=== PATIENT | male | born 1950 | race Caucasian/White ===

== ENCOUNTER 2017-12-20 22:32 | Inpatient (IN) | payer MEDICARE ==
[2017-12-21] MEDS ORDERED: NS 0.9% 1000 ML* 1,000 ML IV ONE (01:27)
[2017-12-21] MEDS ORDERED: HYDROmorphone INJ* 2 MG/ML CARPUJECT SYRINGE IV SLOW PU ONE (01:57)
--- NOTE | 2017-12-21 01:57 | ED ---
GI/ HPI - HPI Summary HPI Summary: This patient is a 67 year old M presenting to [facility] accompanied by with a chief complaint of constipation that began at approximately 1600. The patient rates the pain 8/10 in severity. Symptoms aggravated by nothing. Symptoms alleviated by nothing. Patient reports right leg weakness (since knee replacement), numbness in right foot (since knee replacement), feeling like something is coming out of the anus, and RLQ abd pain. - History of Current Complaint Chief Complaint: EDRectalPain Time Seen by Provider: 12/21/17 01:26 Stated Complaint: PAIN DIGESTIVE TRACT Hx Obtained From: Patient, Family/Junior Mechanical Engineer Onset/Duration: Started Hours Ago, Still Present Timing: Constant Severity: Severe Current Severity: Severe Pain Intensity: 9 Location of Pain: Rectal Associated Signs and Symptoms: Positive: Other: - Positive right leg weakness ( since knee replacement), numbness in right foot (since knee replacement), feeling like something is coming out of the anus, and RLQ abd pain Aggravating Factor(s): Nothing Alleviating Factor(s): Nothing - Allergy/Home Medications Allergies/Adverse Reactions: Allergies Allergy/AdvReac Type Severity Reaction Status Date / Time erythromycin base AdvReac Stomach Verified 12/21/17 04:22 Cramps PMH/Surg Hx/FS Hx/Imm Hx Previously Healthy: No Endocrine/Hematology History: Reports: Hx Anemia - pale Denies: Hx Diabetes Cardiovascular History: Denies: Hx Hypertension, Hx Pacemaker/ICD GI History: Denies: Hx Jaundice History: Denies: Hx Renal Disease Sensory History: Denies: Hx Hearing Aid Psychiatric History: Denies: Hx Panic Disorder - Surgical History Surgery Procedure, Year, and Place: tr[place], right thumb,sinus,right knee, tonsilectomy. RIGHT KNEE REPLACEMENT 06/2017 Infectious Disease History: No Infectious Disease History: Denies: Traveled Outside the [place] in Last 30 Days - Family History Known Family History: Positive: Diabetes - Social History Occupation: Retired Lives: With Family Alcohol Use: None Hx Substance Use: No Substance Use Type: Reports: None Hx Tobacco Use: No Smoking Status (MU): Never Smoked Tobacco Review of Systems Positive: Abdominal Pain, Other - Positive constipation and feeling like "something is coming out of the anus" Neurological: Other - Positive weakness in right leg and numbness in right foot All Other Systems Reviewed And Are Negative: No Physical Exam - Summary Physical Exam Summary: Appearance: Alert, conversive, nontoxic appearing Skin: Warm, dry, no mottling, no rashes, no contusions HEENT: EOMI, PERRL, moist mucous membranes Neck: No masses on the neck, supple Respiratory: Clear to auscultation, breath sounds present, no rales, no rhonchi , no wheezes Cardiovascular: RRR, pulses are symmetrical in both lower and upper extremities Abdomen: Soft, non-tender Bowel Sounds: Present External Rectal Exam: Prolapsed rectum. Partial prolapsed rectum. A portion of the bowel is sander. Musculoskeletal: No CVA tenderness, no obvious deformity, moving all extremities in a grossly normal manner. Good pulse on right inguinal. Bounding pulses in left inguinal. Neurological: A&Ox3, CN II-XII Intact, moving all extremities symmetrically Psychiatric: Normal affect and mood Triage Information Reviewed: Yes Vital Signs On Initial Exam: Initial Vitals Temp Pulse Resp BP Pulse Ox 97.6 F 112 16 116/80 97 12/20/17 22:35 12/20/17 22:35 12/20/17 22:35 12/20/17 22:35 12/20/17 22:35 Vital Signs Reviewed: Yes Diagnostics - Vital Signs Vital Signs Temp Pulse Resp BP Pulse Ox 12/21/17 01:33 67 18 111/70 93 12/21/17 01:24 71 18 96 12/21/17 01:18 71 18 104/69 93 12/21/17 01:15 93 16 89/59 100 12/21/17 00:40 97.0 F 106 20 98/75 99 12/20/17 22:35 97.6 F 112 16 116/80 97 - Laboratory Result Diagrams: 12/21/17 02:09 12/21/17 02:09 Lab Statement: Any lab studies that have been ordered have been reviewed, and results considered in the medical decision making process. - CT CT Abdomen and Pelvis CT Interpretation Completed By: Radiologist - CT abdomen and pelvis reveals, per radiologist, no acute findings. ED physician has reviewed this radiology report. - EKG 0118 Cardiac Rate: NL EKG Rhythm: Sinus Rhythm - [address] Segment: Normal Ectopy: None Re-Evaluation - Re-Evaluation First Eval Re-Evaluation Time: 05:12 Change: Unchanged Comment: Discussed results and plan of care with pt GIGU Course/Dx - Course Course Of Treatment: This patient is a 67 year old M presenting [place] [facility] accompanied by with a chief complaint of constipation that began at approximately 1600. Symptoms aggravated by nothing. Symptoms alleviated by nothing. Patient reports feeling like something is coming out of the anus. Physical Exam Findings: Good pulse on right inguinal. Bounding pulses in left inguinal. Prolapsed rectum. Partial prolapsed rectum. A portion of the bowel is sander. An EKG reveals nml sinus rhythm at [address] abdomen and pelvis reveals , per radiologist, no acute findings. Bloodwork obtained. In the ED course the patient was given hydromorphone, contrast, and fluids. Consult with Dr. Urbano ( hospitalist) at 0637. She agrees to admit pt for further evaluation. The patient is agreeable with this plan. - Diagnoses Differential Diagnoses - Male: Other - ischemic bowel, obstruction, colitis, internal hemorrhoid, external hemorroid, uti Provider Diagnoses: Abdominal pain, Incomplete rectal prolapse Discharge - Sign-Out/Discharge Documenting (check all that apply): Patient Departure - [place] [facility] [place] Condition: Stable Disposition: ADMITTED TO [facility] Referrals: Alexandra Verma MD [Primary Care Provider] - Attestations Scribe Attestation: This is ramakrishna Barrett documenting for attending Shruthi Martinez MD. User Type: Provider with Scribe Provider Attestation: The documentation recorded by the scribe accurately reflects the service I personally performed and the decisions made by me.
[2017-12-21 02:23] LABS: ABS Basophils 0.1 10^3/ul (0-0.2); ABS Eosinophils 0 10^3/ul (0-0.6); ABS Lymphocytes 3.1 10^3/ul (1.0-4.8); ABS Monocytes 0.6 10^3/ul (0-0.8); ABS Neutrophils 5.8 10^3/ul (1.5-7.7); ABS Nucleated RBC 0 10^3/ul; Eosinophil % 0.4 % (0-6); Hematocrit 45 % (42-52); Lymphocyte % 32.2 % (25-47); Mean Corpuscular HGB Conc 34 g/dl (31-36); Mean Corpuscular Hemoglobin 30 pg (27-31); Mean Corpuscular Volume 88 fL (80-94); Mean Platelet Volume 9.7 um3 (7.4-10.4); Nucleated Red Blood Cells % 0.2; Platelet Count 177 10^3/ul (150-450); Red Blood Count 5.07 10^6/ul (4.00-5.40); Red Cell Distribution Width 16 % (10.5-15); White Blood Count 9.7 10^3/ul (3.5-10.8)
[2017-12-21 02:30] LABS: INR 0.98 (0.77-1.02)
[2017-12-21 02:39] LABS: EGFR Non-African American 75.6 (>60)
[2017-12-21] MEDS ORDERED: Iohexol 300* (CONTRAST) 10 ML SDV IV ONE ×2 (04:54→17:02)
--- NOTE | 2017-12-21 06:25 | RAD ---
EXAM: CT Abdomen and Pelvis With Intravenous Contrast CLINICAL HISTORY: 67 years old, male; Pain; Abdominal pain; Generalized; Additional info: Abd pain TECHNIQUE: Axial computed tomography images of the abdomen and pelvis with intravenous contrast. Coronal and sagittal reformatted images were created and reviewed. COMPARISON: A/P WO CT ABD/PEL W/O 2016-02-08 11:09 FINDINGS: Lung bases: Linear opacities within the lung bases which may represent areas of subsegmental atelectasis. Focal hypodensity located in the dome of the right lobe liver. It has a mildly lobulated margin. It measures 2.4 cm in AP length and 1.7 cm in width. It has a central density of approximately 15 Hounsfield units and may represent a cyst. There is another smaller focal hypodensity in the anterior aspect of the medial right lobe liver. This is too small to further characterize. These lesions were noted on the prior CT study of 02/08/2016 and are unchanged. ABDOMEN: Liver: Unremarkable. No mass. Gallbladder and bile ducts: Cholecystectomy. No ductal dilatation. Pancreas: Fatty infiltration of the pancreas. No dilatation of the pancreatic duct. No pancreatic mass. Spleen: The spleen is of normal size and appearance. Adrenals: The adrenal glands are normal. Kidneys and ureters: The right and left kidneys are of normal size and appearance. No hydronephrosis or nephrolithiasis. No hydroureter. Stomach and bowel: No bowel obstruction. No mucosal thickening. Occasional colonic diverticula without evidence of acute diverticulitis. PELVIS: Appendix: The appendix is not visualized. No evidence of acute appendicitis. Bladder: The bladder is filled with urine. No bladder wall thickening. No calcified stone. Reproductive: Unremarkable as visualized. ABDOMEN and PELVIS: Intraperitoneal space: Unremarkable. No free air. No significant fluid collection. Bones/joints: No acute fracture. No dislocation. Soft tissues: Unremarkable. Vasculature: Atheromatous changes involving the abdominal aorta. No aneurysmal dilatation. Lymph nodes: Unremarkable. No enlarged lymph nodes. IMPRESSION: 1. No acute findings. Final read addendum: There is a hepatic cyst of the dome of the liver with a smaller cyst of segment IVb. These can be identified on 2016 examination and are stable. R2
[2017-12-21] MEDS ORDERED: Albuterol HFA INHALER* 8 gm MDI INH PRN (07:40)
[2017-12-21] MEDS ORDERED: Acetaminophen TAB* 325 MG PO PRN (08:05)
[2017-12-21] MEDS: Cyanocobalamin TAB* 500 MCG PO SCH (09:22)
[2017-12-21] MEDS: NS 0.9% 1000 ML* 1,000 ML IV SCH ×2 (09:24→17:03)
[2017-12-21] MEDS: KCL 10 MEQ/50 ML IVPREMIX* 10 MEQ/50 ML BAG IV SCH ×4 (09:24→12:54)
--- NOTE | 2017-12-21 10:10 | CONSULT ---
Consult Consult: Surgery Consult Asked by Dr. Higginbotham to evaluate a pt. with possible rectal prolapse. Mr. Aguilar is a 67 y.o. male admitted with a neurologic issue who was reported to have pushed something out in an attempt to pass a hard stool yesterday afternoon. He says he has not moved his bowels in 2 weeks and that this degree of constipation is new since September. The change in bowel habits has been accompanied by other changes according to his who says his weight is down from 260 to 190 in that time. Mr. Aguilar says when he tried to push the hard stool out he felt the "skin come out" and then he tried to push that in, and may have hurt himself in the process. He says he still hasn't passed the stool. PMHx: denies Meds: albuterol, VitB12 ALL: erythromycin base SH: denies tob.or IVDA PE: general: WDWN male in NAD lying on side in bed Vital Signs - 12 hr Temp Pulse Resp BP Pulse Ox 12/21/17 09:09 98.2 F 72 24 137/71 100 12/21/17 08:46 97.9 F 61 18 120/69 98 12/21/17 08:03 21 136/78 12/21/17 08:00 19 12/21/17 07:33 25 141/76 12/21/17 07:03 14 112/65 12/21/17 07:00 15 12/21/17 06:33 7 120/73 12/21/17 06:03 7 117/70 12/21/17 06:00 10 12/21/17 05:33 14 119/71 12/21/17 05:03 12 116/66 12/21/17 05:00 10 12/21/17 04:54 19 126/70 12/21/17 04:03 19 122/74 12/21/17 04:00 65 15 97 12/21/17 03:33 75 18 143/83 99 12/21/17 03:29 20 12/21/17 03:03 19 121/70 12/21/17 03:00 59 17 99 12/21/17 02:33 76 19 124/73 95 12/21/17 02:03 70 18 126/71 100 12/21/17 02:00 73 23 99 12/21/17 01:51 88 25 136/98 97 12/21/17 01:33 67 18 111/70 93 12/21/17 01:24 71 18 96 12/21/17 01:18 71 18 104/69 93 12/21/17 01:15 93 16 89/59 100 12/21/17 00:40 97.0 F 106 20 98/75 99 12/20/17 22:35 97.6 F 112 16 116/80 97 anal area shows an edematous external hemorrhoid at the posterior aspect and a large thrombosed hemorrhoid at the anterior aspect. Laboratory Results - last 24 hr 12/21/17 12/21/17 12/21/17 02:09 02:09 02:09 WBC 9.7 RBC 5.07 Hgb 15.0 Hct 45 MCV 88 MCH 30 MCHC 34 RDW 16 H Plt Count 177 MPV 9.7 Neut % (Auto) 60.1 Lymph % (Auto) 32.2 Kent % (Auto) 6.6 Eos % (Auto) 0.4 Baso % (Auto) 0.7 Absolute Neuts (auto) 5.8 Absolute Lymphs (auto) 3.1 Absolute Monos (auto) 0.6 Absolute Eos (auto) 0 Absolute Basos (auto) 0.1 Absolute Nucleated RBC 0 Nucleated RBC % 0.2 ESR INR (Anticoag Therapy) 0.98 APTT 27.7 Sodium 145 Potassium 2.9 L Chloride 108 Carbon Dioxide 20 L Anion Gap 17 H BUN 15 Creatinine 0.99 Est GFR ( Amer) 91.5 Est GFR (Non-Af Amer) 75.6 BUN/Creatinine Ratio 15.2 Glucose 110 H Lactic Acid Calcium 9.5 Total Bilirubin 0.80 AST 14 ALT 6 L Alkaline Phosphatase 71 Total Creatine Kinase 33 C-Reactive Protein 6.39 Total Protein 6.6 Albumin 4.0 Globulin 2.6 Albumin/Globulin Ratio 1.5 Lipase 28 Vitamin B12 TSH 12/21/17 12/21/17 12/21/17 02:09 02:09 02:10 WBC RBC Hgb Hct MCV MCH MCHC RDW Plt Count MPV Neut % (Auto) Lymph % (Auto) Kent % (Auto) Eos % (Auto) Baso % (Auto) Absolute Neuts (auto) Absolute Lymphs (auto) Absolute Monos (auto) Absolute Eos (auto) Absolute Basos (auto) Absolute Nucleated RBC Nucleated RBC % ESR 17 INR (Anticoag Therapy) APTT Sodium Potassium Chloride Carbon Dioxide Anion Gap BUN Creatinine Est GFR ( Amer) Est GFR (Non-Af Amer) BUN/Creatinine Ratio Glucose Lactic Acid 1.6 Calcium Total Bilirubin AST ALT Alkaline Phosphatase Total Creatine Kinase C-Reactive Protein Total Protein Albumin Globulin Albumin/Globulin Ratio Lipase Vitamin B12 284 TSH 9.08 H A/P: Thrombosed hemorrohoid associated with recent constipation. Sitz baths and bowel regimen to manage this.
[2017-12-21] MEDS: Morphine VIAL* 4 MG/ML VIAL (1 ml vial) IV PRN ×2 (10:32→21:26)
[2017-12-21] MEDS: Polyethylene Glycol 3350* 17 GM PACKET PO SCH ×2 (10:33→21:34)
--- NOTE | 2017-12-21 11:25 | HP ---
CC: Dr. Alexandra Calix HISTORY AND PHYSICAL: DATE OF ADMISSION: 12/21/17 TIME OF EVALUATION: 07:34 a.m. PRIMARY CARE PROVIDER: Dr. Alexandra Calix. CONSULTING NEUROLOGIST: Dr. Chris. CONSULTING GENERAL SURGEON: Dr. Erika Alejandra. CHIEF COMPLAINT: "I thought I was going to pass out." HISTORY OF PRESENT ILLNESS: Mr. Aguilar is a 67-year-old male with a past medical history of asthma, thyroid nodule that presented to the emergency room with complaints of rectal pain. While in triage , the patient was asking if "I was getting darker here" and he appeared to be getting "white in color ." The patient was documented as being pale, able to answer questions, but slow to respond. He was put in Trendelenburg and vital signs at that time showed heart rate of 93 with a blood pressure of 89 /59. He was transported to the emergency room, room 14, placed in Trendelenburg position in the [facility] and his blood pressure improved to 104/62 and the patient became more awake. He had initially presented to the emergency room with complaints of constipation. He explains that ar ound 4 p.m. yesterday, he went to the bathroom to have a bowel movement and he felt there was a "flap of skin" blocking the way. He was straining to have a bowel movement and he digitally tried to mitch ve this flap of skin and was unable to. He developed local pain and overnight as the patient persist ed, he decided to come to the emergency room for further evaluation. Emergency room provider vlada l exam revealed a prolapsed rectum. Of note is the fact the patient has had multiple symptoms that started since he had a knee replacemen t in June 2017. He states that since that time, he was feeling weaker, developed pain allover an d initially, he felt that this was associated with the surgery, but as time went by, the symptoms did not resolve, they actually kept getting worse. He developed dysphagia and was seen by his primary c are provider, who detected a thyroid nodule. He was referred to Dr. Max and evaluated in November. He w as found to have a 1.7 cm low suspicion nodule of the left lower thyroid and FNA was benign thyroid n odule, colloid hyperplastic type. Dr. Max noted that this was a benign thyroid nodule and he recommen ded to follow up in 2 years, but he thought the patient's dysphagia was not associated with this thyr oid nodule. He was concerned that the patient could have multisystem atrophy "pseudobulbar palsy" ac counting for the swallowing difficulty as he noted the patient to have bradykinesia, flat effect, but no tremor. He contacted the primary care provider and recommended taking this into consideration if GI evaluation was negative. The patient's states that he had an upper endoscopy done at [place] that was negative and his [facility] care provider did refer him to Neurology, but he is scheduled to be seen in March. In the meantime, the patient's condition continues to decline. She states that he has lost 73 pounds since June and his p.o. intake has been minimal. He states that he has difficulty swallowing an d even if he eats just a small amount, he feels like he ate a lot, so he does not want to eat anymore . She states that he basically now eats just hotdogs and crackers. His weakness in the beginning appeared to be more proximal. He had difficult to getting up from a ch air and he will need to hold onto the chair arms to be able to stand up and he also could not keep hi s arms lifted to the point that now he has to take breaks to be able to shave, but the weakness has b ecome more generalized at this point. PAST MEDICAL HISTORY: 1. Asthma. 2. Thyroid nodule. PAST SURGICAL HISTORY: 1. Status post knee arthroscopies and a right total knee replacement in June 2017. 2. Status post cholecystectomy. MEDICATION LIST: 1. Albuterol HFA 1 puff inhaled q.4 hours p.r.n. shortness of breath. 2. Cyanocobalamin 1000 mcg p.o. daily. ALLERGIES: With ERYTHROMYCIN, the patient has stomach cramps. FAMILY HISTORY: Many siblings had hypothyroidism. Father, type 2 diabetes. No other reported autoi mmune disease. Grandfather and uncle had stomach cancer. SOCIAL HISTORY: No history of alcohol, tobacco, or drug use. He is a retired office electrician and surrog ate decision maker is his , Ariana Aguilar, phone number is [phone]. REVIEW OF SYSTEMS: A 14-point review of systems was performed and all the pertinent negative and pos itive findings are in the HPI. PHYSICAL EXAMINATION GENERAL: The patient is an elderly male that appears older than stated age, lying in the ED stretche r, in no acute distress. VITAL SIGNS: Temperature 97.0, heart rate is 67, respiratory rate is 19, oxygen saturation is 97% on room air, blood pressure is 141/76. HEENT: Pupils are equal. Moist mucous membranes. CHEST: Breath sounds present bilaterally with no added sounds. CVS: Normal S1, S2. Regular rate and rhythm. ABDOMEN: Soft, nontender, nondistended. Bowel sounds present. EXTREMITIES: No edema. There is well-healed surgical scar to his right knee. NEURO: He is alert, awake, and oriented x3. Affect is very flat. He is able to follow commands, bu t has significant proximal weakness. He can lift both arms, but shows signs of fatigue in less than 5 seconds and the arms drop to the bed. He has intrinsic muscle atrophy in his hands. He can lift h is left lower extremity against gravity, but not against resistance and the right lower extremity brody es great effort to lift against gravity, but he can barely hold it. DIAGNOSTIC STUDIES/LAB DATA: The patient had a CBC that showed WBC of 9.7, hemoglobin of 15, hemato crit of 45, platelets of 177 with 60% neutrophils. INR is 0.98, APTT is 27. Chemistry showed sodium of 145, potassium 2.9, chloride of 108, bicarb of 20, anion gap of 17, BUN of 16, creatinine of 0.99 , glucose of 110, calcium of 9.5, lactic acid of 1.6. LFTs are normal except for an ALT of 6. CT of the abdomen and pelvis showed no acute findings. EKG done on 12/21/17 at 01:18 a.m. showed sin us rhythm at 70 beats per minute with no ST-T changes. There is no prior EKG to compare. The patient had an MRI of the brain done on 12/04/17 and it was unremarkable. MRI of the brain with and without contrast with no abnormal enhancement. ASSESSMENT AND PLAN: Mr. Aguilar is a 67-year-old male with a past medical history of asthma, thyroi d nodule that presented to the emergency room with complaints of rectal pain and likely was near sync opal due to vasovagal episode. His major issue is a 6-month history of progressive weakness, dysphag ia, and significant weight loss. 1. Rectal prolapse. I believe this is secondary to the patient's constipation with straining and manipulation. A consult ation with General Surgery was requested. 2. Near syncope/vasovagal. The patient has had very poor oral intake. He appears to be dehydrated and I believe his rectal prol apse, pain, and dehydration likely caused the vasovagal episode. He will be admitted to telemetry floor. He is going to receive IV hydration. We are going to reple te electrolytes and I will check an echocardiogram. 3. Progressive weakness/dysphagia. The patient's presentation is very concerning with this progressive weakness, muscle atrophy, dysphag ia, and significant weight loss. With his intrinsic muscle atrophy, I am concerned he may have ALS. On his examination in November, Dr. Max was concerned with multisystem atrophy. I did not see any fasciculations on my physical examination. Other possibility would be polymyositis, but it usually does not cause dysphagia and the weakness is mostly proximal. I am going to check ROJELIO, ANCA, vitamin B12 level, CPK, CRP, sed rate, TSH, and Neurology consultation was requested with Dr. Chris. He is going to have a swallow evaluation. I am going to check a chest x-ray to look for any masses t hat would suggest a paraneoplastic syndrome. 4. Anion gap metabolic acidosis. Suspect the patient likely has starvation ketosis, he is going to receive IV hydration. We are going to start him on the clear liquid diet and monitor. 5. DVT prophylaxis: The patient has a score of 2 on the DVT Prophylaxis Risk Assessment Guide and h e will be started on subcutaneous heparin. 6. Code status is full. TIME SPENT: Approximately 60 minutes were spent with the patient, interview, medical records re view, physical examination to complete this admission, more than half of this time was spent face-to- face with the patient and coordination of care. [id number]/[facility] #: [id number]
[2017-12-21] MEDS: Heparin VIAL(*) 5000 UNITS/ML VIAL (FIVE THOUSAND) SUBCUT SCH ×2 (14:21→21:29)
[2017-12-21] MEDS: Pantoprazole IV* 40 MG IV SCH (16:10)
--- NOTE | 2017-12-21 18:18 | RAD ---
HISTORY: Weight loss, r/o tumor COMPARISONS: None TECHNIQUE: Multiple contiguous axial CT scans of the chest were obtained with intravenous contrast. Coronal and sagittal multiplanar reformations are also submitted for review. FINDINGS: NECK AND THYROID: The lower neck and thyroid are unremarkable. CHEST WALL: There is no lower cervical, axillary, or supraclavicular lymphadenopathy by size criteria. HEART AND PERICARDIUM: The heart is unremarkable. AORTA AND PULMONARY VASCULATURE: The aorta and pulmonary vasculature are normal. MEDIASTINUM: There is no mediastinal lymphadenopathy by size criteria. JODI: There is no hilar lymphadenopathy by size criteria. AIRWAY AND ESOPHAGUS: The airway is unremarkable, without endobronchial filling defect. The esophagus is grossly normal. LUNG PARENCHYMA: There is hyperinflation. There is a 0.4 centimeter nodule within the right middle lobe on axial image 37. PLEURA: No pleural abnormalities are noted. UPPER ABDOMEN: Hepatic cysts are noted. BONES AND SOFT TISSUES: Degenerative changes are noted of the spine. OTHER: None. IMPRESSION: 1. 0.4 CM NODULE OF THE RIGHT MIDDLE LOBE THE RECOMMENDATIONS FOR FOLLOWUP AND MANAGEMENT OF AN INCIDENTALLY DETECTED PULMONARY NODULE LESS THAN 6 MM IN SIZE, IN A PATIENT WITHOUT A HISTORY OF MALIGNANCY, INCLUDE NO FOLLOWUP FOR A LOW-RISK PATIENT OR OPTIONAL FOLLOWUP CT IN 12 MONTHS FOR A HIGH RISK PATIENT. 2. OTHERWISE UNREMARKABLE CT OF THE CHEST. NOTES: SIZE = AVERAGE LENGTH AND WIDTH; HIGH RISK IS DEFINED A HISTORY OF SMOKING OR OTHER KNOW RISK FACTORS FOR LUNG CANCER; LOW RISK IS DEFINED MINIMAL OR ABSENT HISTORY OF SMOKING OR OTHER KNOWN RISK FACTORS. Amol H, MOON Mac, HUGO Damon, et al (2017) "Guidelines for Management of Incidental Pulmonary Nodules Detected on CT Images: From the Fleischner Society 2017." Radiology; 284(1): 228-243. doi:10.1148/radiol.[id number] 1.
--- NOTE | 2017-12-21 20:08 | CONS ---
CONSULTATION REPORT: DATE OF CONSULT: 12/21/17 PATIENT OF: Dr. Higginbotham, Dr. Calix, Dr. Max. HISTORY OF PRESENT ILLNESS: This is a 67-year-old right-handed man, whose history dates back to June, when he had knee surgery and he notes that roughly at that point he began developing weakness that has been slowly progressive involving both arms and legs and it has clearly been worse since September , but seems like it is getting persistently worse. It is more proximally with shoulders being the worse, but also worse in the leg. He has had some difficulty swallowing. This has been going on since perhaps September and he feels like the swallowing has led to significant weight loss. He has become more nasal and he feels like some of the weakness may be fatigable. He has had no double vision. No incoordination. He is little bit unsteady in his gait. He has some mild neck pain, but no significant headache. No nausea or vomiting. He has had constipation and this has been a problem. He has had 1 near syncopal episode. In the emergency room today, when he came because of rectal pain, he had a near syncopal episode with blood pressure going down to 89/59 and him feeling like he was going to pass out. As part of his workup for dysphagia, a thyroid nodule was found and he was referred to Dr. Max and this was felt to be a benign thyroid nodule, colloid, hyperplastic type. He has had an upper endoscopy at [place], which is negative. PAST MEDICAL HISTORY: Significant for his asthma and thyroid nodule. PAST SURGICAL HISTORY: He is status post knee arthroscopies and a right total knee replacement, June 2017; status post cholecystectomy. MEDICATIONS: He is on albuterol 1 puff q.4 hours p.r.n., cyanocobalamin 1000 mcg p.o. daily. ALLERGIES: He is allergic to ERYTHROMYCIN with stomach cramps. FAMILY HISTORY: There is no family history for neurological disease, no progressive weakness in anyone in the family. There are many siblings with hypothyroidism. There is no known autoimmune disease. A grandfather and uncle had stomach cancer. SOCIAL HISTORY: He does not smoke, drink, or use drugs. He is a retired fitness coordinator. REVIEW OF SYSTEMS: Negative in all 14 spheres other than in the HPI. He has had no muscle twitches and no tremor. PHYSICAL EXAM: Temperature 97.7, pulse 57, respirations 18, blood pressure 118/ 62. He is alert and oriented with normal word finding. There is no slurring with speech, but his speech is sounding nasal. He had full extraocular movements without double vision. There was no ptosis on prolonged upper gaze. Fundi were benign. There was no clear tongue atrophy or fasciculations. I noted no fasciculations in his extremities. Reflexes were trace to 1. Strength was 5-/5 distally with 4+/5 proximally with repetitive shoulder shrugs , he seemed to fatigue, but not in a pronounced way. Sensation intact to light touch. Reflexes as mentioned trace to 1. I stood him up, he did not get lightheaded and he did not fall with Romberg, but he had a wide-based stance with that to help protect him. He was able to take a few steps, but he seemed unsteady. Chest: Clear. Cardiovascular: Regular rate and rhythm. Abdomen: Soft with positive bowel sounds. DIAGNOSTIC STUDIES/LAB DATA: I reviewed his MRI scan from 12/04/17, which was read as normal except his both temporal lobes may have had atrophy. He had a scan in 2009, and it was done for a headache, that was read as normal, but I was not able to compare the films to see if there was an interval change. Labs include normal sed rate, CBC, normal INR and PTT. He had normal CMP other than potassium of 2.2, bicarb was 20, lactic acid of 1.6. Normal liver function test. CPK was 33. C-reactive protein was 6.39. Lipase is 28. Vitamin B12 was 284, TSH was 908. ASSESSMENT AND PLAN: He is getting a vasculitis workup. He is getting an MRI scan of his cervical spine. Dr. Higginbotham is getting a CT chest, abdomen and pelvis. One possibility is he could have an underlying malignancy explaining the weight loss and he could have paraneoplastic syndrome. Alternatively he thinks is that his weight loss is secondary to his difficulty eating,and that is clearly possible. If that is true then his neurological problems would be the primary thing and then the differential for that would include amyotrophic lateral sclerosis, but I did not see any fasciculations and his reflexes were not brisk. He could have a motor neuropathy, but it would be odd for it to cause dysphagia. He could have a multisystem degeneration and that could tie in with orthostatic hypotension in addition to his dysphagia. He has no clear past blunting or clear cerebellar findings, but this still remains a possibility. Another possibility would be a myasthenic syndrome either myasthenia gravis or Eaton-Lambert. For many of these, the EMG nerve conduction study would be useful. I will be doing that on Saturday and he will be having his imaging testing done in the next couple of days. The MRI scan could source of weakness, but it is in his legs as well as his reflexes are not brisk. In addition to EMG nerve conduction study, I will be sending of serologies looking for myasthenia. Once we do a little bit more workup, we may send off paraneoplastic syndrome is possible. If we do not find an absolute answer, we may need to have him see neuromuscular up at [place]. Thank you for sharing his case. [id number]/[facility] #: [id number] ENEIDA
[2017-12-21] MEDS ORDERED: Ondansetron ODT TAB* 4 MG PO PRN (21:07)
[2017-12-22] MEDS: NS 0.9% 1000 ML* 1,000 ML IV SCH (03:05)
[2017-12-22] MEDS: Heparin VIAL(*) 5000 UNITS/ML VIAL (FIVE THOUSAND) SUBCUT SCH ×3 (05:25→20:09)
[2017-12-22] MEDS: Morphine VIAL* 4 MG/ML VIAL (1 ml vial) IV PRN (05:26)
[2017-12-22] MEDS: Cyanocobalamin TAB* 500 MCG PO SCH (08:56)
[2017-12-22] MEDS: Polyethylene Glycol 3350* 17 GM PACKET PO SCH ×2 (08:56→20:08)
[2017-12-22] MEDS: Pantoprazole IV* 40 MG IV SCH (08:56)
[2017-12-22 10:10] LABS: ABS Basophils 0.1 10^3/ul (0-0.2); ABS Eosinophils 0.1 10^3/ul (0-0.6); ABS Lymphocytes 1.8 10^3/ul (1.0-4.8); ABS Monocytes 0.3 10^3/ul (0-0.8); ABS Neutrophils 2.5 10^3/ul (1.5-7.7); ABS Nucleated RBC 0 10^3/ul; Eosinophil % 1.9 % (0-6); Hematocrit 36 % (42-52); Lymphocyte % 37.7 % (25-47); Mean Corpuscular HGB Conc 33 g/dl (31-36); Mean Corpuscular Hemoglobin 30 pg (27-31); Mean Corpuscular Volume 89 fL (80-94); Mean Platelet Volume 9.6 um3 (7.4-10.4); Nucleated Red Blood Cells % 0; Platelet Count 118 10^3/ul (150-450); Red Blood Count 4.07 10^6/ul (4.00-5.40); Red Cell Distribution Width 17 % (10.5-15); White Blood Count 4.7 10^3/ul (3.5-10.8)
[2017-12-22 10:27] LABS: EGFR Non-African American 91.4 (>60)
--- NOTE | 2017-12-22 11:20 | RAD ---
HISTORY: Progressive weakness, gait disturbance COMPARISONS: None TECHNIQUE: The following sequences were obtained of the cervical spine: Sagittal T1- and T2-weighted images, sagittal STIR images, axial T1-weighted images, axial T2 and gradient echo images. FINDINGS: BRAIN AND SPINAL CORD: The visualized spinal cord is normal in caliber, position, and signal intensity. The visualized portion of the brain is unremarkable. The cerebellar tonsils are normal in position. ALIGNMENT: The alignment is normal. VERTEBRAL BODIES: There is mild anterolateral marginal osteophyte formation. JOINTS: There is uncovertebral and facet osteoarthritis. MUSCULATURE: Unremarkable INTERVERTEBRAL DISCS: There is diffuse loss of intervertebral disc height and T2 signal throughout the spine. AXIAL IMAGES: C2-C3: There is no disc herniation, spinal stenosis, or neuroforaminal narrowing. C3-C4: There is bilateral uncovertebral hypertrophy. There is mild bilateral neuroforaminal narrowing. There is no significant central canal stenosis. C4-C5: There is bilateral uncovertebral and facet hypertrophy, greater on the right than on the left. There is severe right and moderate left neural foraminal narrowing. There is mild narrowing of central canal. C5-C6: There is right greater than left uncovertebral and facet hypertrophy. There is severe right and moderate to severe left neuroforaminal narrowing. There is mild narrowing of the central canal. C6-C7: There is bilateral uncovertebral hypertrophy. There is mild bilateral neuroforaminal narrowing. There is no significant central canal stenosis. C7-T1: There is no disc herniation, spinal stenosis, or neuroforaminal narrowing. SOFT TISSUES: The visualized soft tissues of the neck are unremarkable. OTHER: None. IMPRESSION: 1. DEGENERATIVE DISC DISEASE AND OSTEOARTHRITIS. 2. THERE IS MULTILEVEL NEUROFORAMINAL NARROWING DESCRIBED ABOVE. 3. THERE IS MILD NARROWING OF THE CENTRAL CANAL AT C4-C5 AND C5-C6. 4. THERE IS NO ABNORMAL CORD SIGNAL.
[2017-12-22] MEDS ORDERED: Potassium Chlor TAB* 20 MEQ TAB.ER PO STA (13:23)
[2017-12-22] MEDS ORDERED: Magnesium Sulfate 2 GM IV* 2 GM/50 ML BAG IVPB ONE (13:24)
--- NOTE | 2017-12-22 13:38 | PN ---
Progress Note - Progress Note Date of Service: 12/22/17 Note: Surgery Mr. Aguilar says he is having less pain in the anal area. He is worried about passing stool, and is worried about what caused the constipation in the first place. Vital Signs 12/21/17 12/21/17 12/21/17 16:19 20:00 20:15 Temperature 97.4 F 97.5 F Pulse Rate 74 64 Respiratory 16 20 16 Rate Blood Pressure 146/78 133/58 (mmHg) O2 Sat by Pulse 100 100 Oximetry 12/21/17 12/21/17 12/22/17 21:26 22:26 00:16 Temperature Pulse Rate 58 Respiratory 18 18 20 Rate Blood Pressure 119/60 (mmHg) O2 Sat by Pulse 100 Oximetry 12/22/17 12/22/17 12/22/17 04:33 05:26 06:30 Temperature 98.3 F Pulse Rate 54 Respiratory 20 18 18 Rate Blood Pressure 113/59 (mmHg) O2 Sat by Pulse 100 Oximetry 12/22/17 08:07 Temperature 97.3 F Pulse Rate 58 Respiratory 19 Rate Blood Pressure 120/67 (mmHg) O2 Sat by Pulse 100 Oximetry Exam shows much less edema. Laboratory Results - last 24 hr 12/22/17 12/22/17 08:23 08:23 WBC 4.7 RBC 4.07 Hgb 12.0 L Hct 36 L MCV 89 MCH 30 MCHC 33 RDW 17 H Plt Count 118 L MPV 9.6 Neut % (Auto) 52.4 Lymph % (Auto) 37.7 Collier % (Auto) 6.8 Eos % (Auto) 1.9 Baso % (Auto) 1.2 Absolute Neuts (auto) 2.5 Absolute Lymphs (auto) 1.8 Absolute Monos (auto) 0.3 Absolute Eos (auto) 0.1 Absolute Basos (auto) 0.1 Absolute Nucleated RBC 0 Nucleated RBC % 0 Sodium 145 Potassium 3.3 L Chloride 112 H Carbon Dioxide 23 Anion Gap 10 BUN 5 L Creatinine 0.84 Est GFR ( Amer) 110.6 Est GFR (Non-Af Amer) 91.4 BUN/Creatinine Ratio 6.0 L Glucose 64 L Calcium 8.2 L Phosphorus 2.6 Magnesium 1.5 L Total Bilirubin 0.80 AST 12 L ALT 4 L Alkaline Phosphatase 56 Total Protein 4.8 L Albumin 2.9 L Globulin 1.9 L Albumin/Globulin Ratio 1.5 A/P Improving but will be unable to further assess the anal area till the pain has resolved. Consider colace if not already in the regimen. CLFoster
--- NOTE | 2017-12-22 13:40 | PN ---
Subjective Date of Service: 12/22/17 Interval History: Pt seen and examined. Meds and labs reviewed. CC: N/A ROS: Denied WALSH/dizziness, F/C, N/V, CP, SOB, increased cough, sputum production , abd pain, diarrhea, constipation, dysuria, myalgias, arthralgias, throat pain , and new skin lesions. The rest of the 14 point ROS are unremarkable. PHYSICAL EXAM: GEN APPEARANCE: Awake, not in acute distress HEENT: NC/AT, PERRLA, moist oral mucosa, (-) throat erythema NECK: Soft, supple, (-) cervical LAD, (-)JVD HEART: S1S2 WNL, RRR, No MRG CHEST: CTA, BL, GAE, No W/R/R ABD: Soft, ND/NT, NABS 4x Q EXT: No C/C/E SKIN: Warm to touch PSYCH: No active psychosis, hallucinations, depression, SI/HI Objective Active Medications: Acetaminophen (Tylenol Tab*) 650 mg PO Q6H PRN PRN Reason: pain/fever Albuterol (Ventolin Hfa Inhaler*) 1 puff INH Q4H PRN PRN Reason: SOB/WHEEZING Cyanocobalamin (Vitamin B12 Tab*) 1,000 mcg PO DAILY [facility] Last Admin: 12/22/17 08:56 Dose: 1,000 mcg Heparin Sodium (Porcine) (Heparin Vial(*)) 5,000 units SUBCUT Q8HR [facility] Last Admin: 12/22/17 05:25 Dose: 5,000 units Magnesium Sulfate (Magnesium Sulfate 2 Gm Iv*) 2 gm in 50 mls @ 50 mls/hr IVPB ONCE ONE Stop: 12/22/17 14:23 Sodium Chloride (Ns 0.9% 1000 Ml*) 1,000 mls @ 75 mls/hr IV PER RATE [facility] Morphine Sulfate (Morphine Vial*) 2 mg IV Q4H PRN PRN Reason: PAIN Last Admin: 12/22/17 05:26 Dose: 2 mg Ondansetron HCl (Zofran Odt Tab*) 4 mg PO Q6H PRN PRN Reason: n/v Last Admin: 12/21/17 21:35 Dose: 4 mg Pantoprazole Sodium (Protonix Iv*) 40 mg IV DAILY [facility] Last Admin: 12/22/17 08:56 Dose: 40 mg Polyethylene Glycol/Electrolytes (Miralax*) 17 gm PO 0800,2100 [facility] Last Admin: 12/22/17 08:56 Dose: 17 gm Potassium Chloride (Klor Con Er Tab*) 40 meq PO ONCE STA Stop: 12/22/17 13:24 Vital Signs - 8 hr 12/22/17 12/22/17 06:30 08:07 Temperature 97.3 F Pulse Rate 58 Respiratory 18 19 Rate Blood Pressure 120/67 (mmHg) O2 Sat by Pulse 100 Oximetry Oxygen Devices in Use Now: None Result Diagrams: 12/22/17 08:23 12/22/17 08:23 Microbiology and Other Data: Microbiology 12/21/17 02:02 Aerobic Blood Culture - Preliminary Blood Line No Growth Day 1 Anaerobic Blood Culture - Preliminary No Growth Day 1 12/21/17 02:02 Aerobic Blood Culture - Preliminary Blood Line No Growth Day 1 Anaerobic Blood Culture - Preliminary No Growth Day 1 Assess/Plan/Problems-Billing Assessment: - Patient Problems (1) Rectal prolapse Current Visit: Yes Status: Acute Code(s): K62.3 - RECTAL PROLAPSE SNOMED Code(s): 99000052 Comment: -With thrombosed hemorrhoid -Appreciate Dr. Yonatan tirado -For sitz bath and bowel regimen (2) Near syncope Current Visit: Yes Status: Acute Comment: -Possibly due to mild DHN -Pts I/Os in the positive today and will decrease rate of IVF to 75 cc/hr and will continue to watch O/N (3) History of progressive weakness Current Visit: Yes Status: Acute Code(s): Z87.898 - PERSONAL HISTORY OF OTHER SPECIFIED CONDITIONS SNOMED Code(s): 648910729 Comment: -Appreciate Dr. Hernandes input -For possible EMG in AM? -Other than 0.4 cm lung nodule, CT of chest is otherwise unremarkable -MRI of CS shows narrowing of central canal in C4-C6 level and multilevel neuroforaminal levels---this was done w/o contrast and MRI with contrast is due for tomorrow (4) Lung nodule < 6cm on CT Current Visit: Yes Status: Acute Code(s): R91.1 - SOLITARY PULMONARY NODULE SNOMED Code(s): 782826573 Comment: -Defer with outpt surveillance with PCP -As above (5) High anion gap metabolic acidosis Current Visit: Yes Status: Acute Code(s): E87.2 - ACIDOSIS SNOMED Code(s) : 90139837 Comment: -Mild -Likely due to DHN on presentation -Now resolved (6) DVT prophylaxis Current Visit: Yes Status: Acute Code(s): MYQ4804 - SNOMED Code(s): 427837971 Comment: -Continue Heparin SQ Status and Disposition: -For PT eval
[2017-12-23] MEDS: Bisacodyl SUPP* 10 MG SUPP PR ONE ×2 (00:22→01:47)
[2017-12-23] MEDS: NS 0.9% 1000 ML* 1,000 ML IV SCH ×2 (04:24→17:55)
[2017-12-23] MEDS: Heparin VIAL(*) 5000 UNITS/ML VIAL (FIVE THOUSAND) SUBCUT SCH ×3 (05:01→21:40)
[2017-12-23] MEDS: Morphine VIAL* 4 MG/ML VIAL (1 ml vial) IV PRN (05:01)
[2017-12-23 06:15] LABS: ABS Basophils 0 10^3/ul (0-0.2); ABS Eosinophils 0.1 10^3/ul (0-0.6); ABS Lymphocytes 1.8 10^3/ul (1.0-4.8); ABS Monocytes 0.4 10^3/ul (0-0.8); ABS Neutrophils 3.1 10^3/ul (1.5-7.7); ABS Nucleated RBC 0 10^3/ul; Eosinophil % 1.5 % (0-6); Hematocrit 34 % (42-52); Hemoglobin 11.6 g/dl (14.0-18.0); Lymphocyte % 32.5 % (25-47); Mean Corpuscular HGB Conc 34 g/dl (31-36); Mean Corpuscular Hemoglobin 30 pg (27-31); Mean Corpuscular Volume 88 fL (80-94); Mean Platelet Volume 9.1 um3 (7.4-10.4); Nucleated Red Blood Cells % 0.1; Platelet Count 113 10^3/ul (150-450); Red Blood Count 3.87 10^6/ul (4.00-5.40); Red Cell Distribution Width 16 % (10.5-15); White Blood Count 5.4 10^3/ul (3.5-10.8)
[2017-12-23 06:32] LABS: EGFR Non-African American 79.3 (>60)
[2017-12-23] MEDS ORDERED: Docusate CAP* 100 MG PO PRN (08:59)
[2017-12-23] MEDS: Pantoprazole IV* 40 MG IV SCH (09:20)
[2017-12-23] MEDS: Cyanocobalamin TAB* 500 MCG PO SCH (09:22)
[2017-12-23] MEDS: Polyethylene Glycol 3350* 17 GM PACKET PO SCH ×2 (09:35→21:40)
[2017-12-23] MEDS ORDERED: Ondansetron INJ* 2 MG/ML VIAL IV PRN (10:05)
--- NOTE | 2017-12-23 11:17 | PN ---
Subjective Date of Service: 12/23/17 Interval History: Pt seen and examined. Meds and labs reviewed. CC: N/A ROS: Denied WALSH/dizziness, F/C, N/V, CP, SOB, increased cough, sputum production , abd pain, diarrhea, constipation, dysuria, myalgias, arthralgias, throat pain , and new skin lesions. The rest of the 14 point ROS are unremarkable. PHYSICAL EXAM: GEN APPEARANCE: Awake, not in acute distress HEENT: NC/AT, PERRLA, moist oral mucosa, (-) throat erythema NECK: Soft, supple, (-) cervical LAD, (-)JVD HEART: S1S2 WNL, RRR, No MRG CHEST: CTA, BL, GAE, No W/R/R ABD: Soft, ND/NT, NABS 4x Q EXT: No C/C/E SKIN: Warm to touch PSYCH: No active psychosis, hallucinations, depression, SI/HI Objective Active Medications: Acetaminophen (Tylenol Tab*) 650 mg PO Q6H PRN PRN Reason: pain/fever Last Admin: 12/23/17 01:11 Dose: 650 mg Albuterol (Ventolin Hfa Inhaler*) 1 puff INH Q4H PRN PRN Reason: SOB/WHEEZING Cyanocobalamin (Vitamin B12 Tab*) 1,000 mcg PO DAILY [facility] Last Admin: 12/23/17 09:22 Dose: 1,000 mcg Docusate Sodium (Colace Cap*) 200 mg PO DAILY PRN PRN Reason: CONSTIPATION Heparin Sodium (Porcine) (Heparin Vial(*)) 5,000 units SUBCUT Q8HR [facility] Last Admin: 12/23/17 05:01 Dose: 5,000 units Sodium Chloride (Ns 0.9% 1000 Ml*) 1,000 mls @ 75 mls/hr IV PER RATE [facility] Last Admin: 12/23/17 04:24 Dose: 75 mls/hr Morphine Sulfate (Morphine Vial*) 2 mg IV Q4H PRN PRN Reason: PAIN Last Admin: 12/23/17 05:01 Dose: 2 mg Ondansetron HCl (Zofran Odt Tab*) 4 mg PO Q6H PRN PRN Reason: n/v Last Admin: 12/21/17 21:35 Dose: 4 mg Ondansetron HCl (Zofran Inj*) 4 mg IV Q6H PRN PRN Reason: NAUSEA Pantoprazole Sodium (Protonix Iv*) 40 mg IV DAILY [facility] Last Admin: 12/23/17 09:20 Dose: 40 mg Polyethylene Glycol/Electrolytes (Miralax*) 17 gm PO 0800,2100 [facility] Last Admin: 12/23/17 09:35 Dose: Not Given Vital Signs - 8 hr 12/23/17 12/23/17 12/23/17 03:17 05:01 06:05 Temperature 98.7 F Pulse Rate 82 Respiratory 20 16 18 Rate Blood Pressure 119/57 (mmHg) O2 Sat by Pulse 100 Oximetry 12/23/17 12/23/17 12/23/17 07:56 08:00 08:50 Temperature 97.5 F Pulse Rate 69 Respiratory 16 16 16 Rate Blood Pressure 134/79 (mmHg) O2 Sat by Pulse 98 Oximetry Oxygen Devices in Use Now: None Result Diagrams: 12/23/17 05:53 12/23/17 05:53 Microbiology and Other Data: Microbiology 12/21/17 02:02 Aerobic Blood Culture - Preliminary Blood Line No Growth Day 1 Anaerobic Blood Culture - Preliminary No Growth Day 1 12/21/17 02:02 Aerobic Blood Culture - Preliminary Blood Line No Growth Day 1 Anaerobic Blood Culture - Preliminary No Growth Day 1 Assess/Plan/Problems-Billing Assessment: - Patient Problems (1) Rectal prolapse Current Visit: Yes Status: Acute Code(s): K62.3 - RECTAL PROLAPSE SNOMED Code(s): 38933724 Comment: -With thrombosed hemorrhoid -Appreciate Dr. Massey/U -For sitz bath -Placed on Colace and Miralax BID (2) Near syncope Current Visit: Yes Status: Acute Comment: -Possibly due to mild DHN -Pts I/Os in the positive today and will decrease rate of IVF to 75 cc/hr and will continue to watch O/N (3) History of progressive weakness Current Visit: Yes Status: Acute Code(s): Z87.898 - PERSONAL HISTORY OF OTHER SPECIFIED CONDITIONS SNOMED Code(s): 315582969 Comment: -Appreciate Dr. Hernandes input -Other than 0.4 cm lung nodule, CT of chest is otherwise unremarkable -MRI of CS shows narrowing of central canal in C4-C6 level and multilevel neuroforaminal levels---this was done w/o contrast and MRI with contrast is due for today -Spoke with Dr. Arboleda who recommends SPEP/UPEP and will order this -Will await for any further recommendations (4) Lung nodule < 6cm on CT Current Visit: Yes Status: Acute Code(s): R91.1 - SOLITARY PULMONARY NODULE SNOMED Code(s): 563082168 Comment: -Defer with outpt surveillance with PCP -As above (5) High anion gap metabolic acidosis Current Visit: Yes Status: Acute Code(s): E87.2 - ACIDOSIS SNOMED Code(s) : 40029719 Comment: -Mild -Likely due to DHN on presentation -Now resolved (6) DVT prophylaxis Current Visit: Yes Status: Acute Code(s): [id number] - SNOMED Code(s): 908443932 Comment: -Continue Heparin SQ Status and Disposition: -Will await for any PT reccomendations in terms of D/C needs
--- NOTE | 2017-12-23 11:31 | ECHO ---
Patient: TIFFANY VALDES [facility] Rec#: [id number] : 1950 Date: 12/23/2017 Age: 67y Height: 177.8 cm / 70.0 in Weight: 87.09 kg / 191.9 lbs Sex: M BSA: 2.05 Room#: 440 Admit Date#: 12/21/2017 Type: Inpatient Referring: Mariella Mata MD Reading: Rafat Littlejohn MD Corporate Development Intern: Jacklyn KayeSERINA CC: Alexandra Calix MD CC: Tiffany Chris MD Transthoracic Echocardiogram Indication: Syncope BP: 119/57 HR: 64 Rhythm: NSR with PVCs Findings History: Asthma, dysphasia, thyroid nodule. Technical Comments: The study quality is fair. Completed at 1045. Left Ventricle: The left ventricular chamber size is decreased. Mild concentric left ventricular hypertrophy is observed. There is a prominent septal knuckle. Global left ventricular wall motion and contractility are within normal limits. Left ventricular systolic function is at the lower limits of normal. The estimated ejection fraction is 50-55%. There is no consistent Doppler evidence of clinically significant diastolic dysfunction. Left Atrium: The left atrial chamber size is normal. Right Ventricle: Moderator Band present. The right ventricle is mildly dilated. The right ventricular global systolic function is low normal. Right Atrium: The right atrium is mildly dilated. Aortic Valve: The aortic valve is trileaflet. The aortic valve leaflets are mildly thickened. There is a trace of aortic regurgitation. There is no evidence of aortic stenosis. Mitral Valve: The mitral valve leaflets are mildly thickened. There is trace to mild mitral regurgitation. There is no evidence of mitral stenosis. Tricuspid Valve: The tricuspid valve leaflets are normal. There is mild tricuspid regurgitation. The right ventricular systolic pressure is estimated at 28 mmHg. There is evidence that pulmonary hypertension may be underestimated. There is no tricuspid stenosis. Pulmonic Valve: The pulmonic valve structure is not well visualized. There is a trace pulmonic regurgitation. There is no pulmonic stenosis. Pericardium: There is no significant pericardial effusion. A pericardial fat pad is visualized. Aorta: There is no dilatation of the ascending aorta. There is no dilatation of the aortic arch. There is mild dilatation of the aortic root. Pulmonary Artery: The main pulmonary artery is not well visualized. Venous: The inferior vena cava appears normal in size. There is a greater than 50% respiratory change in the inferior vena cava dimension. Summary: There was not any prior study for comparison. Conclusions Global left ventricular wall motion and contractility are within normal limits. Left ventricular systolic function is at the lower limits of normal. The estimated ejection fraction is 50-55%. The right ventricular global systolic function is low normal. There is a trace of aortic regurgitation. There is trace to mild mitral regurgitation. There is mild tricuspid regurgitation. The right ventricular systolic pressure is estimated at 28 mmHg. There is no significant pericardial effusion. Measurements Name Value Normal Range RVIDd (AP) 2D 3.1 cm (0.9 - 2.6) RVDdMajor (2D) 4.6 cm (2.2 - 4.4) RAd ISD 4CH 5 cm (3.4 - 4.9) RA (A4C)W 4.3 cm (2.9 - 4.6) IVSd (2D) 1.2 cm (0.6 - 1) LVPWd (2D) 1.1 cm (0.6 - 1) LVIDd (2D) 3.2 cm (3.6 - 5.4) LVIDs (2D) 2.6 cm - LV FS (2D) 18 % (25 - 45) Aortic Annulus 2.3 cm (1.4 - 2.6) Ao root diameter (2D) 4 cm (2.1 - 3.5) Ascending Ao 3.3 cm (2.1 - 3.4) Aortic arch 2.3 cm (1.8 - 3.4) LA dimension (AP) 2D 3.7 cm (2.3 - 3.8) LAd ISD 4CH 5.2 cm (2.9 - 5.3) LA ISD 4CH W 4.3 cm (2.5 - 4.5) Name Value Normal Range LA ESV SP 4CH (A/L) 48 ml - LA ESV SP 2CH (A/L) 42 ml - LA ESV BP (A/L) 46 ml - LA ESV BP (A/L) index 22 ml/m2 - LA ESV SP 4CH (MOD) 43 ml - LA ESV SP 2CH (MOD) 42 ml - Name Value Normal Range MV E-wave Vmax 0.52 m/sec - MV deceleration time 260.05 msec - MV A-wave Vmax 0.52 m/sec - MV E:A ratio 1 ratio - LV septal e' Vmax 0.08 m/sec - LV lateral e' Vmax 0.09 m/sec - LV E:e' septal ratio 6.5 ratio - LV E:e' lateral ratio 5.78 ratio - Name Value Normal Range AV Vmax 1.2 m/sec - AV VTI 23.4 cm - AV peak gradient 5.02 mmHg - AV mean gradient 2.48 mmHg - LVOT Vmax 0.93 m/sec - LVOT VTI 18.52 cm - LVOT peak gradient 3.49 mmHg - LVOT mean gradient 1.93 mmHg - RAI Vmax 0.6 m/sec - Name Value Normal Range TR Vmax 2.5 m/sec - TR peak gradient 25 mmHg - RAP 3 mmHg - RVSP 28 mmHg - IVC diameter 1.6 cm - Name Value Normal Range PV Vmax 0.96 m/sec - PV peak gradient 3.66 mmHg -
[2017-12-23] MEDS ORDERED: Cyanocobalamin INJ * 1,000 MCG/ML VIAL 1 ML VIAL IM ONE (16:38)
[2017-12-23] MEDS ORDERED: Gadoteridol* (CONTRAST) 279.3 MG/ML 10 ML IV ONE (17:39)
--- NOTE | 2017-12-24 01:23 | PN ---
CC: Dr. Bear; Dr. Lawler; Dr. Chris * NEUROLOGY PROGRESS NOTE: DATE OF SERVICE: 12/23/17 PRIMARY PROVIDERS: Dr. Bear and Dr. Lawler. Neurology is following for the evaluation of weakness and dysphagia. CHIEF COMPLAINT: Weakness and difficulty swallowing. SUBJECTIVE: Mr. Remi Aguilar is a 67-year-old right-handed man with a history of progressive weakness dated back to June of 2017 following a right knee surgery. During rehabilitation, he started developing symptoms of inability to stand, climb stairs, and slowly progressed to inability to swallow both liquids and solids. This course was gradual in onset and by September 2017, the patient had significant restriction in ambulation. He has lost approximately 70 pounds since June of 2017. He has choking spells when he takes his medications, mostly choking with capsules. He denied any muscle fasciculations. He does complain of burning paresthesias, mostly involving the hands and feet, which started during the same time if not a few weeks after the weakness. He has chronic neck pain and low back pain. He denied any impairment in his bowel or bladder functions. He denied any preceding symptoms such as diarrhea or upper respiratory tract infection. REVIEW OF SYSTEMS: Denied any chest pain, shortness of breath, or palpitation. The patient is hospitalized for near syncope. He received IV fluids. He had an EMG/nerve conduction study by Dr. Chris this morning. I have not reviewed the results, but according to Dr. Chris, the patient has evidence of mild axonal neuropathy. There was a questionable temporal dispersion seen in one of the nerves. I will review the study today and update the results in the progress note tomorrow. The patient had an MRI of the cervical spine completed on 12/21/17 that showed degenerative disk disease and multilevel neural foraminal narrowing and mild narrowing of the central canal at C4-C5 and C5-C6. There was no abnormal cord signal. The patient has no weakness in the bulbar muscles, except for dysphagia. He denied any double vision or headaches. MEDICATIONS: 1. Acetaminophen 650 mg p.o. every 6 hours. 2. Albuterol 1 puff inhaler every 4 hours. 3. Cyanocobalamin that was given p.o. daily. 4. Docusate 200 mg p.o. daily as needed for constipation. 5. Morphine 2 mg IV every 4 hours as needed for pain. 6. Ondansetron 4 mg p.o. every 6 hours as needed for nausea, vomiting. 7. Pantoprazole 40 mg IV daily. 8. Sodium chloride IV fluids. PHYSICAL EXAMINATION: General: Chronically frail, ill-appearing male, in no acute distress. He is alert and cooperative. Head: Normocephalic, atraumatic. Eyes: Conjunctivae/corneas are clear. Neck is supple and symmetrical. Lungs are clear to auscultation bilaterally. Cardiovascular: Regular rate and rhythm. Normal S1, S2. Extremities: No hammertoes or high arches. Skin: No skin lesions or lacerations. Psych: Flat affect and depressed mood, but easy to establish rapport. Mental Status: Awake and alert , oriented to person, place, time, and general circumstance. He does have hypophonia and psychomotor slowing. Otherwise, language and speech is normal. Cranial Nerve: Normal confrontation bilaterally. Pupils are mid range and reactive. Extraocular muscles are intact. Sensation is intact. On the face, he has no facial droop. He is able to hear throughout the history process, symmetrical palate elevation, and tongue is symmetrical and midline with no atrophy or fasciculation. Motor examination: No abnormal movement. No pronator drift. No fasciculation. Neck extension 4/5. Shoulder range of motion is full. Shoulder abduction 4+/5 and limited due to arthritic pain. Elbow flexion and extension 5/5. Wrist flexion 4+/5, extension 5/5. Finger flexion 4/5, extension 5/5, abduction 4+/5. Hip flexion 4/5, abduction 5/5. Knee flexion 5/5, extension 4+ on the right and 4/5 on the left. Ankle dorsiflexion 5/5, plantarflexion 5/5. Great toe extension 4/5. Reflexes right/ left: Brachioradialis 1/1, biceps trace/trace, triceps trace/trace, patella trace/2, ankle absent/absent plantarflexor bilaterally. Sensation is intact to light touch and pinprick, but there is a distal to proximal sensory gradient up to the ankles bilaterally. He does have reduced vibratory sensation at 5 seconds on the right and 6 seconds on the left great toe. Proprioception intact. Coordination: Normal [id number] and rapid alternating movement. Gait: Wide gait and antalgic-like gait. No ataxia. LABORATORY/IMAGING/OTHER DIAGNOSTIC TESTING: WBC 5.4, hemoglobin of 11.6, hematocrit of 34, platelet count of 113. INR 0.98. APTT 27.7. Sodium of 146, potassium 3.6, chloride 114, carbon dioxide 23, BUN of 3, creatinine of 0.95, glucose 80, calcium 8.1. CK 33. Total protein 4.8. Albumin 2.9, globulin 1.9. Vitamin B12 of 284. TSH 9.08. ASSESSMENT: Mr. Remi Aguilar is a 67-year-old right-handed man, who has a gradual progression of muscle weakness that he reports involves the hands and the proximal lower extremities over a period of 4 months. The patient has lost 70 pounds due to oropharyngeal dysphagia. Nerve conduction study was done and showed evidence of mild axonal neuropathy. He had diffuse chronic reinnervation potentials without active denervation on EMG testing of the upper and lower limb. MRI of the cervical spine did not show any evidence of severe central spine stenosis. Overall on clinical grounds, I suspect the patient may have underlying inflammatory myopathy such as inclusion body myositis given the findings of dysphagia and distal flexor weakness in upper extremity and proximal muscle weakness in the lower extremity. 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 I do not think he has motor neuron disease given the fact that he does not have any evidence of active denervation on the EMG, he is complaining of sensory abnormalities, and the as well as the distribution of the weakness. Underlying multiple system atrophy cannot be entirely excluded, although he does not have the clinical features of Parkinsonism on examination either. He has no evidence of myelopathy on examination and still has some retained reflexes. Chronic inflammatory demyelinating neuropathy is also a possibility but there was no demyelinating neuropathy on the NCS and he still has some retained reflexes. At this time, the patient would benefit from further evaluation by neuromuscular specialist, particularly at [facility] Neuromuscular [facility]. I will contact them first thing in the morning to schedule an appointment. I started the patient on vitamin B12, intramuscular supplement x1 , and then continue p.o. supplementation. I have ordered a free T4 level to check if this could potentially be due to underlying thyroid disease. If not yet obtained, he needs a MBS evaluation to further clarify the dysphagia. In addition, we are waiting for the serum protein electrophoresis and I added the methylmalonic acid to confirm if there is any underlying vitamin B12 deficiency. I encouraged the patient to participate with physical therapy. If not yet done, obtain a speech evaluation and continue supportive care. TIME SPENT: I spent a total of 30 minutes and greater than 50%was spent directly reviewing the medical chart, obtaining history, examining the patient, and discussing the treatment plan as mentioned above. I also discussed this case with Dr. Chris, who followed the patient over the weekend and was interested in update. [id number]/CPS #: [id number] [facility]
[2017-12-24] MEDS: Heparin VIAL(*) 5000 UNITS/ML VIAL (FIVE THOUSAND) SUBCUT SCH ×3 (06:37→19:59)
--- NOTE | 2017-12-24 08:05 | RAD ---
HISTORY: PROGRESSIVELY WORSENING WEAKNESS- PER DR JUAREZ COMPARISONS: December 21, 2017 TECHNIQUE: The following sequences were obtained of the cervical spine: Sagittal and axial T1-weighted images after contrast enhancement with a gadolinium-based intravenous contrast agent.. FINDINGS: The studies were injection with the precontrast MRI of December 22, 2017. Again noted is degenerative disc disease and osteoarthritis as described on the December 22, 2014 examination. There is no abnormal enhancement. IMPRESSION: NO ABNORMAL ENHANCEMENT.
[2017-12-24] MEDS: Polyethylene Glycol 3350* 17 GM PACKET PO SCH ×2 (09:26→19:59)
[2017-12-24] MEDS: Cyanocobalamin TAB* 500 MCG PO SCH (09:26)
[2017-12-24] MEDS: Pantoprazole IV* 40 MG IV SCH (09:27)
[2017-12-24] MEDS ORDERED: Mirtazapine TAB* 15 MG PO PRN (11:47)
[2017-12-24] MEDS: Morphine INJ* 2 MG/ML 1 ML SYRINGE (TWO MG - NEW SYRINGE VERSION) IV PRN ×2 (12:19→20:27)
[2017-12-24] MEDS: Lidocaine PATCH 5%* 1 PATCH TRANSDERM SCH (12:22)
[2017-12-24] MEDS ORDERED: Lidocaine 1% INJ* 10 MG/ML 30 ML SDV INJ ONE (12:25)
[2017-12-24] MEDS: NS 0.9% 1000 ML* 1,000 ML IV SCH (12:41)
--- NOTE | 2017-12-24 14:06 | PN ---
Progress Note - Progress Note Date of Service: 12/24/17 Note: Lumbar Puncture Procedure Note Pre-operative Diagnosis: neurodegenerative disorder, neuropathy, evaluate for chronic [employer] infection (e.g., Lyme) Post-operative Diagnosis: same Indications: Diagnostic Procedure Details Consent: Informed consent was obtained. Time out was performed with JOSH Mitchell at 1320. Risks of the procedure were discussed including: infection, bleeding, pain and headache. Under sterile conditions the patient was positioned in the RIGHT lateral decubitus position in a semi- position. Betadine solution and sterile drapes were utilize . A 22-gauge 3.5-inch spinal needle was inserted at the L3 -4 interspace. Findings 7cc of clear spinal fluid was obtained Opening Pressure: there was slow flow and minimal CSF;hence, opening pressure was not checked Complications: None; patient tolerated the procedure well Condition: stable Plan Bed Rest for 1 hour Tylenol 650 mg. for pain If severe headache, nausea, vomiting, fever >100.5 F or neurological changes, please contact me immediately. Obtain CSF laboratory data: cell count and differential, gram stain and culture , glucose, protein, Lyme disease PCR.
[2017-12-24] MEDS ORDERED: Thiamine IV* 100 MG/ML 2 ML VIAL IV STA (14:30)
[2017-12-24] MEDS: Thiamine TAB* 100 MG TAB PO SCH (14:32)
[2017-12-24 14:40] LABS: Body Fluid Source Cerebral Spinal
[2017-12-24] MEDS ORDERED: Cyanocobalamin INJ * 1,000 MCG/ML VIAL 1 ML VIAL IM SCH (15:00)
[2017-12-24] MEDS ORDERED: NS 0.9% IV ONE (15:30)
[2017-12-24] MEDS ORDERED: THIAMINE IV ONE (15:30)
--- NOTE | 2017-12-24 16:06 | PN ---
Subjective Date of Service: 12/24/17 Interval History: Pt seen and examined. Meds and labs reviewed. CC: N/A ROS: Denied WALSH/dizziness, F/C, N/V, CP, SOB, increased cough, sputum production , abd pain, diarrhea, constipation, dysuria, myalgias, arthralgias, throat pain , and new skin lesions. The rest of the 14 point ROS are unremarkable. PHYSICAL EXAM: GEN APPEARANCE: Awake, not in acute distress HEENT: NC/AT, PERRLA, moist oral mucosa, (-) throat erythema NECK: Soft, supple, (-) cervical LAD, (-)JVD HEART: S1S2 WNL, RRR, No MRG CHEST: CTA, BL, GAE, No W/R/R ABD: Soft, ND/NT, NABS 4x Q EXT: No C/C/E SKIN: Warm to touch PSYCH: No active psychosis, hallucinations, depression, SI/HI, blunt affect Objective Active Medications: Acetaminophen (Tylenol Tab*) 650 mg PO Q6H PRN PRN Reason: pain/fever Last Admin: 12/23/17 01:11 Dose: 650 mg Albuterol (Ventolin Hfa Inhaler*) 1 puff INH Q4H PRN PRN Reason: SOB/WHEEZING Cyanocobalamin (Vitamin B12 Tab*) 1,000 mcg PO DAILY REPLACED BY [facility] Last Admin: 12/24/17 09:26 Dose: Not Given Cyanocobalamin (Vitamin B12 Inj *) 1,000 mcg IM Q30D REPLACED BY [facility] Last Admin: 12/24/17 15:51 Dose: 1,000 mcg Docusate Sodium (Colace Cap*) 200 mg PO DAILY PRN PRN Reason: CONSTIPATION Heparin Sodium (Porcine) (Heparin Vial(*)) 5,000 units SUBCUT Q8HR REPLACED BY [facility] Last Admin: 12/24/17 14:35 Dose: 5,000 units Sodium Chloride (Ns 0.9% 1000 Ml*) 1,000 mls @ 75 mls/hr IV PER RATE REPLACED BY [facility] Last Admin: 12/24/17 12:41 Dose: 75 mls/hr Thiamine HCl 200 mg/ Sodium (Chloride) 252 mls @ 252 mls/hr IV ONCE ONE; Protocol Stop: 12/24/17 16:29 Lidocaine (Lidoderm 5% Patch*) 1 patch TRANSDERM DAILY REPLACED BY [facility] Last Admin: 12/24/17 12:22 Dose: 1 patch Mirtazapine (Remeron Tab*) 7.5 mg PO BEDTIME PRN PRN Reason: SLEEP Morphine Sulfate (Morphine Vial*) 2 mg IV Q4H PRN PRN Reason: PAIN Last Admin: 12/23/17 05:01 Dose: 2 mg Morphine Sulfate (Morphine Inj ((Syringe))*) 0.5 mg IV Q6H PRN PRN Reason: PAIN Last Admin: 12/24/17 12:19 Dose: 0.5 mg Ondansetron HCl (Zofran Odt Tab*) 4 mg PO Q6H PRN PRN Reason: n/v Last Admin: 12/21/17 21:35 Dose: 4 mg Ondansetron HCl (Zofran Inj*) 4 mg IV Q6H PRN PRN Reason: NAUSEA Pantoprazole Sodium (Protonix Iv*) 40 mg IV DAILY REPLACED BY [facility] Last Admin: 12/24/17 09:27 Dose: 40 mg Pharmacy Profile Note (Lidocaine Patch Remove*) 1 note N/A 2100 REPLACED BY [facility] Polyethylene Glycol/Electrolytes (Miralax*) 17 gm PO 0800,2099 REPLACED BY [facility] Last Admin: 12/24/17 09:26 Dose: 17 gm Thiamine HCl (Vitamin B-1 Tab*) 200 mg PO DAILY REPLACED BY [facility] Last Admin: 12/24/17 14:32 Dose: Not Given Vital Signs - 8 hr 12/24/17 12/24/17 12/24/17 12:19 12:42 13:20 Temperature 97.5 F Pulse Rate 65 Respiratory 18 18 18 Rate Blood Pressure 129/73 (mmHg) O2 Sat by Pulse 99 Oximetry Oxygen Devices in Use Now: Nasal Cannula Result Diagrams: 12/23/17 05:53 12/23/17 05:53 Microbiology and Other Data: Microbiology 12/21/17 02:02 Aerobic Blood Culture - Preliminary Blood Line No Growth Day 1 Anaerobic Blood Culture - Preliminary No Growth Day 1 12/21/17 02:02 Aerobic Blood Culture - Preliminary Blood Line No Growth Day 1 Anaerobic Blood Culture - Preliminary No Growth Day 1 Assess/Plan/Problems-Billing Assessment: - Patient Problems (1) Rectal prolapse Current Visit: Yes Status: Acute Code(s): K62.3 - RECTAL PROLAPSE SNOMED Code(s): 78308293 Comment: -With thrombosed hemorrhoid -For sitz bath -Continue with Colace and Miralax BID (2) Near syncope Current Visit: Yes Status: Acute Comment: -Possibly due to mild DHN -Pts I/Os in the positive today and will decrease rate of IVF to 75 cc/hr and will continue to watch O/N (3) History of progressive weakness Current Visit: Yes Status: Acute Code(s): Z87.898 - PERSONAL HISTORY OF OTHER SPECIFIED CONDITIONS SNOMED Code(s): 904444703 Comment: -Other than 0.4 cm lung nodule, CT of chest is otherwise unremarkable -MRI of CS shows narrowing of central canal in C4-C6 level and multilevel neuroforaminal levels---this was done w/o contrast and MRI with contrast is due for today -Spoke with Dr. Arboleda who clarified that pt with distal atrophy, weakness of hip flexors, with mild Cognitive deficit -Lumbar tap done today by Dr. Arboleda appears unremarkable -Methylmalonic acid levels, SPEP/UPEP still pending -Discussed with Dr. Arboleda about incidental finding during my W/U of possible dilutional anemia given malabsorption d/o or poor nutritional deficiency being evaluated as possible cause of above neurological findings given his Iron saturation was found to be high at 73% raising the possibility of hemochromatosis---sent for DNA/genetic confirmatory test -CRP, high sensitive test elevated (4) Lung nodule < 6cm on CT Current Visit: Yes Status: Acute Code(s): R91.1 - SOLITARY PULMONARY NODULE SNOMED Code(s): 372429366 Comment: -Defer with outpt surveillance with PCP -As above (5) DVT prophylaxis Current Visit: Yes Status: Acute Code(s): [id number] - SNOMED Code(s): 288379349 Comment: -Continue Heparin SQ Status and Disposition: -Will await for any PT recommendations in terms of D/C needs
[2017-12-24] MEDS ORDERED: Lidocaine Patch REMOVE* 1 NOTE MISC SCH (21:00)
[2017-12-25] MEDS: Morphine VIAL* 4 MG/ML VIAL (1 ml vial) IV PRN (00:06)
[2017-12-25] MEDS: NS 0.9% 1000 ML* 1,000 ML IV SCH (02:17)
--- NOTE | 2017-12-25 04:20 | PN ---
NEUROLOGY PROGRESS NOTE: DATE OF SERVICE: 12/24/17. PRIMARY HOSPITALIST: Dr. Rojas Lawler. REASON FOR NEUROLOGY FOLLOWUP: Neuropathy. CHIEF COMPLAINT: Pain in the left shoulder and and the right knee. SUBJECTIVE: The patient slept well overnight. He continues to have mostly burning pain in the hands and feet, as well as aching pain in the neck, left shoulder, and right knee. This is chronic. According to the patient's pulse at the bedside, the patient does enjoy being outdoor and he is usually in the [place] during his free time. He has no history of tic bites. He had a swallow evaluation today, which he passed both for solids and liquids. He has a regular diet. The patient does feel depressed. He denied any suicidal or homicidal ideation. He stated that his feeling down is mostly due to his current state and no one listens to the degree of pain he is currently in. He denied any muscle fasciculation. He is able to work with physical therapy. REVIEW OF SYSTEMS: Denied any chest pain, shortness of breath, or palpitation. He denied any headaches or visual disturbance. Dr. Lawler is concerned about possible meningitis and an LP was considered today. To recall, the patient was hospitalized for near syncope and orthostatic hypotension. MEDICATIONS: 1. Acetaminophen 650 mg p.o. q.6 hours as needed. 2. Albuterol 1 puff inhaler q.4 hours. 3. Cyanocobalamin 1000 mcg p.o. 4. Docusate sodium 200 mg p.o. daily. 5. Heparin sodium 5000 units subcutaneous q.8 hours. 6. Lidocaine 1 patch transdermal patch. 7. Mirtazapine 7.5 mg p.o. at bedtime. 8. Morphine 2 mg IV q.4 hours for pain. 9. He is also receiving morphine sulfate 0.5 mg IV q.6 hours for pain. 10. Ondansetron 4 mg p.o. q.6 hours as needed. 11. Pantoprazole 40 mg IV daily. 12. Thiamine was started 200 mg p.o. daily. PHYSICAL EXAMINATION: Vitals: Temperature of 97.4, pulse rate of 61, respiratory rate of 16, oxygen saturation of 99, blood pressure of 127/62. The patient has not been hypotensive. General: Well-nourished, well-developed man in no acute distress. Head: Normocephalic without any obvious abnormalities. Eyes: Conjunctivae/corneas are clear. Neck is supple and symmetrical with no carotid bruits. He has mild tenderness to deep palpation around the cervical paraspinal muscles. Lungs are clear to auscultation bilaterally. Cardiovascular: Regular rate and rhythm. Normal S1, S2. Extremities; Normal range of motion with no cyanosis. Skin: No skin lesions or lacerations. Psych : Affect is flat. The patient appears depressed. He denies any suicidal or homicidal ideation. Neurologic: Mental Status: Awake, alert, and oriented to person, place, and time and general circumstances. He has got some psychomotor slowing. Much real cognitive assessment examination was performed at the bedside and the patient scored 24 out of 30. Some of the deficits was the inability to copy a cube, inability to place the correct hands on the clock, deficiency in fluency as he was only able to name 5 words that begin with the letter F within 60 minutes, and delayed recall. He missed 3 out of the 5 words after 2 minutes. He did fairly well with naming, calculating, orientation, abstraction, and attention. Cranial Nerves: He does have some glabellar sign, but normal confrontation testing and pupils are mid range and reactive to light. He has no facial droop. His tongue is symmetrical midline without any atrophy. Motor examination: He has no abnormal movement or pronator drift. He has got normal bulk and tone. No fasciculation. He has got normal strength throughout the upper and lower extremity except that he has got 4/5 strength to finger abduction and finger flexion, as well as 4/5 in the great toe extension bilaterally. Reflexes right/left brachioradialis 1/1, biceps 1/1, triceps 1/1, patella 0/1, ankle 0/0. Plantar are flexor bilaterally. Sensation is diminished distally and improved proximally to light touch and pinprick up to the knees bilaterally. He has reduced vibratory sensation at the great toe right/left 6 seconds/5 seconds. Proprioception is intact at the great toes. Coordination, normal accedr-le-agsk testing. Gait: Antalgic wide based gait. No ataxia. Limited arm swing movements of the left upper extremity. LABORATORY FINDINGS: That has been obtained so far, WBC 5.4, hemoglobin 11.6, hematocrit of 34, platelets of 113, INR 0.98, aPTT 27.7. Sodium 146, potassium 3.6, chloride 114, C-reactive protein 6.83. TSH 5.28, free T4 1.17, vitamin B12 284. CK level was 53, ESR 17. Pending labs: Methylmalonic acid, SPEP, acetylcholine receptor antibody, musk antibody. IMAGING STUDIES: The patient had an MRI of the brain on 12/04/17 that showed no acute intracranial abnormalities. He does have mild degree of frontal atrophy bilaterally. MRI of cervical spine with and without contrast showed no demyelinating disease or severe spinal stenosis. He has got nonspecific degenerative disk disease of the lumbar spine. ASSESSMENT: Mr. Remi Aguilar is a 67-year-old man who has multiple complaints consistent of dysphagia mainly to solids, who has a 4-month history of dysphagia to solids, burning paraesthesias involving the hands and feet, and right knee and left shoulder pain. On examination, the patient has full strength except for mild 4/5 weakness in the distal upper and lower extremities. He does have a length dependent sensory loss mostly involving the lower extremity to light touch and pinprick, as well as decreased vibratory sensation at the great toes. He was cleared by [facility] and does not have evidence of dysphagia to solids or liquids, but instead has the fear of swallowing due to episodes of choking. He had a nerve conduction study that sowed axonal neuropathy. In regards to his neuropathy, the patient had a low normal vitamin B12 level in the 280s. We are checking the methylmalonic acid. I am not quite sure what is the cause of the neuropathy at this time. 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 Currently, we are repleting the vitamin B12 with daily supplementation. We have added thiamine 200 mg p.o. supplementation. I will also add gabapentin 300 mg at night to help with his burning paresthesias. We are not convinced that the patient has underlying demyelinating neuropathy. I have just added Lyme PCR testing as well as we will do a CSF analysis to check for Lyme disease given the patient's exposure. There is a greater concern that the patient may have an underlying neurodegenerative disorder. The patient has masked facies, hypophonia, and some mild frontal release signs on examination that are concerning for a neurodegenerative disorder. I do not think he has got Parkinson's diseases as he has no eloy tremors or cogwheel rigidity. However, I suspect he may have the spectrum of parkinsonism or multiple system atrophy. Given his orthostatic hypotension on presentation to the hospital. This will need further evaluation as an outpatient. I have placed an outpatient referral to the [facility] neuromuscular as well as movement Disorder Clinic for further evaluation. I spoke to the tack puller machine at [facility] and the case will have to be reviewed by the departments before an appointment can be established. Initially I thought the patient may have an underlying inflammatory myopathy but given the normal CK level and the axonal neuropathy, this is not the case. Plus the EMG did not show EMG changes to suggest a myopathic disorder. I will continue to follow. I discussed this case with Dr. Lawler, as well as Dr. Chris, who consulted on the patient earlier on the week. TIME SPENT: I spent a total of 40 minutes and greater than 50% was spent directly reviewing the medical chart, examining the patient, and discussing the treatment plan and prognosis. [id number]/CPS #: [id number] MTDD
[2017-12-25] MEDS: Heparin VIAL(*) 5000 UNITS/ML VIAL (FIVE THOUSAND) SUBCUT SCH (05:15)
[2017-12-25 05:56] LABS: ABS Basophils 0 10^3/ul (0-0.2); ABS Eosinophils 0.1 10^3/ul (0-0.6); ABS Monocytes 0.4 10^3/ul (0-0.8); ABS Neutrophils 1.9 10^3/ul (1.5-7.7); ABS Nucleated RBC 0 10^3/ul; Eosinophil % 2.4 % (0-6); Hematocrit 33 % (42-52); Hemoglobin 11.3 g/dl (14.0-18.0); Lymphocyte % 45.4 % (25-47); Mean Corpuscular HGB Conc 34 g/dl (31-36); Mean Corpuscular Hemoglobin 30 pg (27-31); Mean Corpuscular Volume 88 fL (80-94); Mean Platelet Volume 8.9 um3 (7.4-10.4); Nucleated Red Blood Cells % 0; Platelet Count 119 10^3/ul (150-450); Red Blood Count 3.81 10^6/ul (4.00-5.40); Red Cell Distribution Width 17 % (10.5-15); White Blood Count 4.4 10^3/ul (3.5-10.8)
[2017-12-25 06:17] LABS: EGFR Non-African American 91.4 (>60)
[2017-12-25] MEDS: Polyethylene Glycol 3350* 17 GM PACKET PO SCH (09:00)
[2017-12-25] MEDS: Thiamine TAB* 100 MG TAB PO SCH (09:00)
[2017-12-25] MEDS: Potassium Chlor TAB* 10 MEQ TAB.ER PO SCH ×2 (09:00→12:19)
[2017-12-25] MEDS: Lidocaine PATCH 5%* 1 PATCH TRANSDERM SCH (09:01)
[2017-12-25] MEDS: Pantoprazole IV* 40 MG IV SCH (09:02)
[2017-12-25] MEDS: Cyanocobalamin TAB* 500 MCG PO SCH (09:07)
[2017-12-25 09:08] VITALS: BP 140/76
[2017-12-25] MEDS ORDERED: Folic Acid TAB* 1 MG PO SCH (10:00)
--- NOTE | 2017-12-25 10:36 | PN ---
Progress Note - Progress Note Date of Service: 12/25/17 Note: Time spent on discharge 50 minutes, including exam of patient, discussion with , Dr. Robles CM, nurse, retail pharmacist, review of EMR and preparation of discharge documents.
--- NOTE | 2017-12-25 18:16 | DS ---
CC: Dr. Alexandra Verma; Dr. Chris.* DISCHARGE SUMMARY: DATE OF ADMISSION: DATE OF DISCHARGE: 12/25/17 HOSPITAL COURSE: This 67-year-old man presented with a near syncope. He initially came to the hospital complaining of rectal pain in triage. He appeared to be getting white colored, he was slow to respond, he was put in Trendelenburg position. His heart rate was 93, blood pressure was 89/69. In Trendelenburg position, his blood pressure improved to 104/62. The patient initially was thought to have rectal prolapse, however, it turned out he had external hemorrhoids, one of which is thrombosed. He was given sitz baths and laxatives and stool softeners. He has a history of weight loss and it was thought that his near syncopal episode was related to poor oral intake. He was admitted to the telemetry floor. His BUN was initially 15. On the day of discharge, it was 1. He complained that everything taste bad to me, he had even water tasted bad, he did not like eating or drinking anything. He did have a swallow eval. But the speech pathologist has recommended that he could have regular consistency foods and thin liquids. Laboratory evaluation did show an albumin of 2.8, B12 level was 284, which is in the lower third of the normal range, methylmalonic acid level was pending. His folic acid level was 3.79. He is being started on folic acid replacement. His TSH was normal at 5.28. Serum iron was 161, iron binding capacity 220, and percent saturation 73%. Transferrin was 157, ferritin 375. Soluble transferring receptor test has been sent out. Hemoglobin 11.3, hematocrit 33, MCV 88, white count 4.4, platelets 119. The patient had a prior MRI of the brain on 12/04/17. He was evaluated on this admission with a CT of the abdomen and pelvis, transthoracic echocardiogram, CT of the chest, MRI of the cervical spine. CT of the chest did show a 0.4 cm nodule of the right middle lobe. This should be followed up, recommendations were made by the radiologist. This range from no followup to optional followup CT in 12 months. The patient was started on gabapentin on the day of discharge. He is waiting for an appointment for the neurologist in [place] to be seen for a second opinion. He has an appointment to see Dr. Chris in about 2 weeks. He will also follow up with his primary care doctor. FINAL DIAGNOSES: 1. 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 2. Thrombosed external hemorrhoids. 3. Weight loss. 4. Dehydration. 5. Near syncope. 6. Anorexia and dysgeusia persist. 7. 0.4 cm lung nodule. DISCHARGE MEDICATIONS: 1. Acetaminophen 650 mg every 6 hours p.r.n. 2. Docusate 200 mg daily. 3. Folic acid 1 mg daily. 4. Gabapentin 300 mg t.i.d. 5. Mirtazapine 7.5 mg h.s. 6. Polyethylene glycol 17 g daily. 7. Potassium chloride 20 mEq daily. 8. Thiamine 100 mg daily. [id number]/[facility] #: [id number] [facility]
--- NOTE | 2017-12-25 19:55 | PN ---
NEUROLOGY PROGRESS NOTE: DATE OF SERVICE: 12/25/17 REASON FOR FOLLOWUP: Subjective complaints of diffuse weakness, fatigue, feeling awful. SUBJECTIVE: The patient did not receive gabapentin overnight. The gabapentin was arranged for today. He still has trouble sleeping at night. He still feels that he is generally weak and has loss of the function of his hands. He did feed himself today. He stated that he did not have breakfast or could not tolerate any p.o. intake, but he did actually eat breakfast and finished his cereal this morning. He had no trouble swallowing. He continues to complain of trouble swallowing. He reported that he had an endoscopy in the past that was normal. He is currently advanced to the normal diet and has no episodes of choking. He has generalized pain mostly located in the left shoulder and the right knee. is concerned about the possibility of him forming some type of reaction to the knee implant. He is able to walk to the restroom without assistance. REVIEW OF SYSTEMS: He denied any chest pain, shortness of breath, or palpitation. MEDICATIONS: There has been no change in his medications from yesterday, but we did add gabapentin 300 mg twice daily. PHYSICAL EXAMINATION: Vitals: Temperature of 97.7, pulse rate of 64, respiratory rate of 18, oxygen saturation of 97, blood pressure is 140/76. General: Well- nourished, well-developed man, in no acute distress. Head: Normocephalic, atraumatic. Eyes: Conjunctivae/corneas are clear. There is no scleral icterus. Neck is supple and symmetrical with no carotid bruits. He has mild tenderness to deep palpation along the cervical paraspinal muscles. Lungs are clear to auscultation bilaterally. Psych: Affect is flat. He appears down in the past. He denied any suicidal or homicidal ideation. He is not interested in any antipsychotic therapy. Neurological Examination: Mental Status: Awake, alert, and oriented to person, place, and time and general circumstances. He does have psychomotor slowing, bradykinesia. Cranial Nerves : He does have positive glabellar sign, but normal confrontation testing and pupils are mid range and reactive to light. He has no facial droop. His tongue is symmetrical and midline without any atrophy. Motor examination: He has no abnormal movement or pronator drift. He has normal bulk and tone. No fasciculation. He has normal strength throughout the upper and lower extremity except that he has 4/5 strength to finger abduction and finger flexion, as well as 4/5 in the great toe extension bilaterally. Reflexes, right/left; brachioradialis 1/1, biceps 1/1, triceps 1/1, patella 0/1, ankle 0/0. Plantar flexor bilaterally. Sensation is diminished distally and improved proximally to light touch and pinprick up to the knees bilaterally. He has reduced vibratory sensation at the great toes, right/left 6 seconds/5 seconds. Proprioception is intact at the great toes. Coordination, normal finger-to- nose testing. Gait: Antalgic, wide-based gait. No ataxia. He does have some limitation on arm swing of the left upper extremity. DIAGNOSTIC STUDIES/LAB DATA: On reviewing his laboratory studies, WBC 4.4, hemoglobin 11.3, hematocrit 33, platelet function is 119. Sodium 145, potassium is 2.8, chloride is 111, carbon dioxide 25, creatinine is 0.84. Vitamin B12 284, folate 3.79, which is low compared to should be greater than 3.99. TSH 5.28, free T4 1.17, C-reactive protein high sensitivity 6.83. Albumin 2.8. Ferritin 375, which is elevated; transferrin 157, which is low; percent saturation 73; TIBC 220; iron 161. CSF analysis: Clear fluid, wbc of 1 , rbc of 2, total cell count of 4, CSF protein 47. Imaging study: The patient had an MRI of the brain on 12/04/17 that showed no acute intracranial abnormality. There is some degree frontal atrophy bilaterally. MRI of the cervical spine with and without contrast showed no demyelinating disease or cervical spinal stenosis. ASSESSMENT/PLAN: Mr. Remi Aguilar is a 67-year-old man who has multiple complaints consistent of: 1. Loss of taste for food, poor appetite, bradykinesia, and mild cognitive impairment - I suspect the patient has an underlying neurodegenerative disorder that can be within the spectrum of parkinsonism, but not consistent with Parkinson's disease. He was hypotensive on presentation which can be seen in cases of multiple system atrophy. There are concerns that he may be depressed but is it due to primary depression or depression related to his neurodegenerative disorder. We sent a referral to for further evaluation and for a second opinoin. The family was informed to contact [facility] Neurology clinic within one week if they don't hear back from [facility]. He will be seeing Dr. Chris January 10, 2018. 2. Burning paresthesias in the hand and feet - the patient has evidence of weakness to finger abduction with atrophy in the FDI bilaterally, left more than right. This is related to underlying neuropathy, the cause is unknown. But nutritional neuropathy in the setting of low normal vitamin B12 can be a possibility. We are pending Lyme serology testing and Lyme PCR testing in the CSF and checking his methylmalonic acid levels. 3. Weight loss due to poor oral intake and subjective dysphagia - the patient informed us today that he has history of abdominal pain in the past and he has had multiple endoscopy and colonoscopies with no etiology ever discovered. He complains of dysphagia but EGD and swallow evaluations have been negative. He is being tested for hemochromatosis is as a cause for his fatigue, weight loss and anemia but that would not explain the dysphagia. Please continue the vitamin B12 supplementation. We have started gabapentin 300 mg twice daily, which will probably help with his burning paresthesias. 5. I do not suspect the patient has any inclusion body myositis or chronic inflammatory demyelinating polyneuropathy. The patient has a followup appointment with Dr. Chris and he will be contacted by [facility] to further evaluate for an underlying neuromuscular junction disorder. We are still awaiting the acetylcholine receptor antibody. 6. The patient appears depressed and does complain of insomnia, worthlessness, helplessness, and denies suicidal or homicidal ideation. He is refusing anti- depressant therapy. No further work-up is needed as in-patient and remaining evaluation can be done as an outpatient. There are concerns that the patient's condition may progress over time and close follow-up is recommended. TIME SPENT: I spent a total of 30 minutes and greater than 50% was spent reviewing the medical chart, examining the patient, and discussing the treatment plan with the patient, his spouse, and Dr. Gar. [id number]/[facility] #: [id number] [facility]
[2017-12-25] MEDS ORDERED: Gabapentin CAP(*) 300 MG PO SCH (21:00)
[2017-12-27 09:37] LABS: Lyme Disease Source CSF
== END 2017-12-25 12:37 | disposition home or self-care (01) | DRG 57 ==
LOC: ED 22:32 → MEDTELE 12-21 07:34 → ED 12-21 08:46 → OBSVTOIN 12-23 13:59
PROVIDERS: ADMIT Internal Medicine; ATTEND Internal Medicine
PROC: 4A0FX3Z Measurement of Musculoskeletal Contractility, External Approach (ICD-10-PCS; principal; 2017-12-23)
PROC: 4A0 Measurement and Monitoring, Physiological Systems, Measurement (ICD-10-PCS; 2017-12-23)
PROC: 4A01X4Z Measurement of Peripheral Nervous Electrical Activity, External Approach (ICD-10-PCS; 2017-12-23)
PROC: 009U3ZX Drainage of Spinal Canal, Percutaneous Approach, Diagnostic (ICD-10-PCS; 2017-12-24)
DX: G31.9 Degenerative disease of nervous system, unspecified (principal); E87.2 Acidosis; K64.5 Perianal venous thrombosis; G62.9 Polyneuropathy, unspecified; Z96.651 Presence of right artificial knee joint; J45.909 Unspecified asthma, uncomplicated; E04.1 Nontoxic single thyroid nodule; M62.50 Muscle wasting and atrophy, not elsewhere classified, unspecified site; I77.6 Arteritis, unspecified; R63.4 Abnormal weight loss; R91.1 Solitary pulmonary nodule; R63.0 Anorexia; R43.2 Parageusia; G89.29 Other chronic pain; M50.321 Other cervical disc degeneration at C4-C5 level; M51.36 Other intervertebral disc degeneration, lumbar region; I95.1 Orthostatic hypotension; R43.9 Unspecified disturbances of smell and taste; K59.00 Constipation, unspecified; E86.0 Dehydration; Z88.1 Allergy status to other antibiotic agents; Z90.49 Acquired absence of other specified parts of digestive tract; Z83.3 Family history of diabetes mellitus; Z80.0 Family history of malignant neoplasm of digestive organs; Z83.49 Family history of other endocrine, nutritional and metabolic diseases; Z68.27 Body mass index [BMI] 27.0-27.9, adult
CPT/HCPCS: 36415; 71260; 72141; 72142; 74177; 80048; 80053; 81256; 82533; 82550; 82595; 82607; 82728; 82746; 83036; 83516; 83519; 83540; 83550; 83605; 83690; 83735; 83921; 84100; 84132; 84155; 84156; 84157; 84165; 84166; 84238; 84439; 84443; 85025; 85610; 85652; 85730; 86038; 86140; 86141; 86618; 87040; 87070; 87205; 87476; 87529; 87798; 89051; 93005; 93306; 95885; 95886; 95912; 96374; 99284; A9270-GY; A9579; G0378; G8978-GP-CI; G8978-GP-CK; G8979-GP-CH; G8979-GP-CI; J1170; J1644; J2270; J3411; J3420; J3475; J3480; Q9967

== ENCOUNTER 2023-05-06 05:53 | Inpatient (IN) ==
[2023-05-06] MEDS ORDERED: Albuterol HFA INHALER 8 gm MDI INH PRN (06:58)
[2023-05-06] MEDS: DOXYcycline 100 MG in NS 0.9% 250 ml 250 ML IVPB SCH ×2 (08:07→20:30)
[2023-05-06] MEDS: Multivitamins ADULT w/MIN LIQ 15 ML UDC G TUBE SCH (08:09)
[2023-05-06] MEDS: guaiFENesin 100 mg/5 ml LIQ unit dose cup G TUBE SCH ×3 (08:09→21:34)
[2023-05-06] MEDS: Famotidine SUSP ORALSYR 8 MG/ML PO SCH ×2 (08:10→20:30)
[2023-05-06] MEDS: Acetylcysteine 600mgCAP(RENAL) SCH (08:10)
[2023-05-06 08:41] LABS: Hematocrit 31.8 % (38-53); Hemoglobin 11.4 g/dL (13.2-16.3); Mean Corpuscular Hgb Conc 35.9 g/dL (31-36); Mean Corpuscular Volume 89.3 fL (80-97); Platelet Count 165 10^3/uL (150-450); Red Blood Count 3.56 10^6/uL (4.06-5.63); Red Cell Distribution Width 13.8 % (12-17); White Blood Count 7.4 10^3/uL (3.6-10.2)
[2023-05-06 09:00] LABS: Calcium 8.1 mg/dL (8.6-10.3); Creatinine, Serum 0.8 mg/dL (0.67-1.17); Potassium 4.7 mmol/L (3.5-5.0); eGFR CKD-EPI 94.6 (>60)
[2023-05-06 09:04] LABS: ABS Lymphocytes 0.4 10^3/uL (1.0-4.8); ABS Monocytes 0.8 10^3/uL (0.0-1.1); ABS Neutrophils 6.2 10^3/uL (1.5-7.6); Lymphocyte % 5.2 %
[2023-05-06] MEDS: Remdesivir 100 mg Vial 100 MG in NS 0.9% 250 ml 230 ML IV SCH (09:15)
[2023-05-06 10:00] LABS: TSH Ultra Thyroid Stim Horm 16.99 mcIU/mL (0.34-5.60)
[2023-05-06 10:02] LABS: Free T4 0.63 ng/dL (0.61-1.12)
[2023-05-06] MEDS: cefTRIAXone 1 gm/50 mL D5W 1 GM/50 ML BAG IV SCH (12:25)
[2023-05-06 13:37] LABS: Creatinine, Serum 0.78 mg/dL (0.67-1.17); Potassium 4.6 mmol/L (3.5-5.0); eGFR CKD-EPI 95.3 (>60)
[2023-05-06 16:48] LABS: Creatinine, Serum 0.82 mg/dL (0.67-1.17); Potassium 4.6 mmol/L (3.5-5.0); eGFR CKD-EPI 93.9 (>60)
[2023-05-06] MEDS: Enoxaparin 40 MG/0.4 ML SYR SUBCUT SCH (21:34)
[2023-05-06 21:59] LABS: Anion Gap 6 mmol/L (2-16); Blood Urea Nitrogen 26 mg/dL (6-24); CO2 Carbon Dioxide 26 mmol/L (22-32); Calcium 7.8 mg/dL (8.6-10.3); Chloride 94 mmol/L (101-111); Creatinine, Serum 0.78 mg/dL (0.67-1.17); Glucose 221 mg/dL (70-100); Sodium 126 mmol/L (135-145); eGFR CKD-EPI 95.3 (>60)
[2023-05-07 01:36] LABS: Anion Gap 3 mmol/L (2-16); Blood Urea Nitrogen 25 mg/dL (6-24); CO2 Carbon Dioxide 27 mmol/L (22-32); Calcium 7.6 mg/dL (8.6-10.3); Chloride 94 mmol/L (101-111); Creatinine, Serum 0.76 mg/dL (0.67-1.17); Glucose 193 mg/dL (70-100); Sodium 124 mmol/L (135-145); eGFR CKD-EPI 96.1 (>60)
[2023-05-07 05:25] LABS: Hematocrit 31.8 % (38-53); Hemoglobin 11.4 g/dL (13.2-16.3); Mean Corpuscular Hemoglobin 31.8 pg (27-33); Mean Corpuscular Hgb Conc 35.8 g/dL (31-36); Platelet Count 180 10^3/uL (150-450); Red Blood Count 3.57 10^6/uL (4.06-5.63); Red Cell Distribution Width 13.3 % (12-17); White Blood Count 7.7 10^3/uL (3.6-10.2)
[2023-05-07 05:40] LABS: Albumin 2.9 g/dL (3.2-5.2); Albumin/Globulin Ratio 1.2 (1-3); Calcium 7.9 mg/dL (8.6-10.3); Creatinine, Serum 0.74 mg/dL (0.67-1.17); Globulin 2.4 g/dL (2-4); Magnesium 1.8 mg/dL (1.9-2.7); Potassium 4.8 mmol/L (3.5-5.0); Total Bilirubin 0.3 mg/dL (0.2-1.0); Total Protein 5.3 g/dL (6.4-8.9); eGFR CKD-EPI 96.9 (>60)
[2023-05-07 05:45] LABS: ABS Lymphocytes 0.4 10^3/uL (1.0-4.8); ABS Neutrophils 6.3 10^3/uL (1.5-7.6); ABS Nucleated RBC 0.01 10^3/ul; Lymphocyte % 5.5 %; Nucleated Red Blood Cells % 0.1 %/100WBC (0.0-0.8); RBC Morphology Normal (Normal)
[2023-05-07] MEDS ORDERED: Magnesium Sulfate IV 1GM/100ML 1 GM/100 ML BAG IV ONE (05:51)
[2023-05-07] MEDS: DOXYcycline 100 MG in NS 0.9% 250 ml 250 ML IVPB SCH (07:51)
[2023-05-07] MEDS: guaiFENesin 100 mg/5 ml LIQ unit dose cup G TUBE SCH ×3 (07:54→20:19)
[2023-05-07] MEDS: Multivitamins ADULT w/MIN LIQ 15 ML UDC G TUBE SCH (07:54)
[2023-05-07] MEDS: Acetylcysteine 600mgCAP(RENAL) SCH (07:54)
[2023-05-07] MEDS: Famotidine SUSP ORALSYR 8 MG/ML PO SCH (07:55)
[2023-05-07] MEDS ORDERED: Dextrose 50% Syringe 50 ml 25 GM/50 ML SYRINGE IV PUSH PRN (08:15)
[2023-05-07] MEDS: Remdesivir 100 mg Vial 100 MG in NS 0.9% 250 ml 230 ML IV SCH (10:19)
[2023-05-07] MEDS ORDERED: Albuterol/Ipratropium NEB.SOL (2.5/0.5 MG) 3 ML NEB.SOLN INH SCH (11:00)
[2023-05-07] MEDS: cefTRIAXone 1 gm/50 mL D5W 1 GM/50 ML BAG IV SCH (11:37)
[2023-05-07] MEDS: Albuterol HFA INHALER 8 gm MDI INH SCH ×2 (13:38→19:45)
[2023-05-07] MEDS: Famotidine SUSP ORALSYR 8 MG/ML PEG TUBE SCH (20:19)
[2023-05-07] MEDS: Enoxaparin 40 MG/0.4 ML SYR SUBCUT SCH (20:19)
[2023-05-08] MEDS: Albuterol HFA INHALER 8 gm MDI INH SCH ×2 (01:43→08:04)
[2023-05-08 05:30] LABS: Hematocrit 33.3 % (38-53); Hemoglobin 11.6 g/dL (13.2-16.3); Mean Corpuscular Hemoglobin 31.4 pg (27-33); Mean Corpuscular Hgb Conc 34.8 g/dL (31-36); Mean Corpuscular Volume 90.1 fL (80-97); Mean Platelet Volume 7.8 fL (7.5-11.2); Platelet Count 191 10^3/uL (150-450); Red Cell Distribution Width 13.2 % (12-17); White Blood Count 6.7 10^3/uL (3.6-10.2)
[2023-05-08 05:47] LABS: Calcium 7.7 mg/dL (8.6-10.3); Creatinine, Serum 0.74 mg/dL (0.67-1.17); Magnesium 1.9 mg/dL (1.9-2.7); Potassium 4.4 mmol/L (3.5-5.0); eGFR CKD-EPI 96.9 (>60)
[2023-05-08 06:14] LABS: ABS Lymphocytes 0.5 10^3/uL (1.0-4.8); ABS Monocytes 0.9 10^3/uL (0.0-1.1); ABS Neutrophils 5.3 10^3/uL (1.5-7.6); Lymphocyte % 7.9 %; Nucleated Red Blood Cells % 0.1 %/100WBC (0.0-0.8)
[2023-05-08] MEDS ORDERED: Magnesium Sulfate IV 1GM/100ML 1 GM/100 ML BAG IV ONE (06:38)
[2023-05-08] MEDS: Acetylcysteine 600mgCAP(RENAL) SCH (08:10)
[2023-05-08] MEDS: guaiFENesin 100 mg/5 ml LIQ unit dose cup G TUBE SCH ×3 (08:10→20:28)
[2023-05-08] MEDS: Multivitamins ADULT w/MIN LIQ 15 ML UDC G TUBE SCH (08:11)
[2023-05-08] MEDS: Remdesivir 100 mg Vial 100 MG in NS 0.9% 250 ml 230 ML IV SCH (08:19)
[2023-05-08] MEDS ORDERED: cefTRIAXone 1 GM Q24H (ADVAN) IVPB SCH (09:00)
[2023-05-08] MEDS: Famotidine SUSP ORALSYR 8 MG/ML PEG TUBE SCH ×2 (09:07→20:28)
[2023-05-08] MEDS: Enoxaparin 40 MG/0.4 ML SYR SUBCUT SCH (20:27)
[2023-05-09 05:43] LABS: Hematocrit 35.9 % (38-53); Hemoglobin 12.4 g/dL (13.2-16.3); Mean Corpuscular Hemoglobin 31.2 pg (27-33); Mean Corpuscular Hgb Conc 34.6 g/dL (31-36); Mean Corpuscular Volume 90.1 fL (80-97); Mean Platelet Volume 7.4 fL (7.5-11.2); Platelet Count 197 10^3/uL (150-450); Red Blood Count 3.99 10^6/uL (4.06-5.63); Red Cell Distribution Width 13.4 % (12-17); White Blood Count 5.1 10^3/uL (3.6-10.2)
[2023-05-09 05:58] LABS: Creatinine, Serum 0.8 mg/dL (0.67-1.17); Potassium 4.5 mmol/L (3.5-5.0); eGFR CKD-EPI 94.6 (>60)
[2023-05-09 07:55] LABS: ABS Lymphocytes 0.6 10^3/uL (1.0-4.8); ABS Monocytes 0.6 10^3/uL (0.0-1.1); ABS Neutrophils 3.9 10^3/uL (1.5-7.6); ABS Nucleated RBC 0.01 10^3/ul; Eosinophil % 0.1 %; Lymphocyte % 11.1 %; Nucleated Red Blood Cells % 0.2 %/100WBC (0.0-0.8)
[2023-05-09] MEDS: guaiFENesin 100 mg/5 ml LIQ unit dose cup G TUBE SCH ×4 (09:30→23:00)
[2023-05-09 10:08] LABS: Creatinine, Serum 0.78 mg/dL (0.67-1.17); Potassium 4.2 mmol/L (3.5-5.0); eGFR CKD-EPI 95.3 (>60)
[2023-05-09] MEDS: Multivitamins ADULT w/MIN LIQ 15 ML UDC G TUBE SCH (11:37)
[2023-05-09] MEDS: Famotidine SUSP ORALSYR 8 MG/ML PEG TUBE SCH ×2 (15:09→23:54)
[2023-05-09] MEDS: Acetylcysteine 600mgCAP(RENAL) SCH (15:09)
[2023-05-09] MEDS: Enoxaparin 40 MG/0.4 ML SYR SUBCUT SCH (23:54)
[2023-05-10 05:55] LABS: Hematocrit 35.5 % (38-53); Hemoglobin 12.6 g/dL (13.2-16.3); Mean Corpuscular Hemoglobin 31.7 pg (27-33); Mean Corpuscular Hgb Conc 35.4 g/dL (31-36); Mean Corpuscular Volume 89.4 fL (80-97); Mean Platelet Volume 7.3 fL (7.5-11.2); Platelet Count 226 10^3/uL (150-450); Red Blood Count 3.97 10^6/uL (4.06-5.63); Red Cell Distribution Width 13.8 % (12-17); White Blood Count 6.6 10^3/uL (3.6-10.2)
[2023-05-10 06:16] LABS: Calcium 8.2 mg/dL (8.6-10.3); Creatinine, Serum 0.77 mg/dL (0.67-1.17); Magnesium 2.1 mg/dL (1.9-2.7); Potassium 4.6 mmol/L (3.5-5.0); eGFR CKD-EPI 95.7 (>60)
[2023-05-10 06:57] LABS: ABS Lymphocytes 0.6 10^3/uL (1.0-4.8); ABS Monocytes 0.5 10^3/uL (0.0-1.1); ABS Neutrophils 5.5 10^3/uL (1.5-7.6); ABS Nucleated RBC 0.01 10^3/ul; Eosinophil % 0.2 %; Lymphocyte % 8.8 %; Nucleated Red Blood Cells % 0.2 %/100WBC (0.0-0.8); RBC Morphology Normal (Normal)
[2023-05-10] MEDS: Acetylcysteine 600mgCAP(RENAL) SCH (10:15)
[2023-05-10] MEDS: Multivitamins ADULT w/MIN LIQ 15 ML UDC G TUBE SCH (10:15)
[2023-05-10] MEDS: Famotidine SUSP ORALSYR 8 MG/ML PEG TUBE SCH (10:21)
[2023-05-10] MEDS: guaiFENesin 100 mg/5 ml LIQ unit dose cup G TUBE SCH ×2 (10:21→13:05)
[2023-05-10 14:53] VITALS: BP 115/72
== END 2023-05-10 18:57 | disposition home or self-care (01) | DRG 177 ==
LOC: ICU 05:53 → MEDTELE 05-09 08:33
PROVIDERS: ADMIT Hospitalist; ATTEND Hospitalist